=== PATIENT | female | born 1950 | race Caucasian/White ===

== ENCOUNTER 2018-12-06 07:50 | Day surgery (SDC) | payer OTHER ==
[~2018-12-06] VITALS: Ht 162.6 cm; Wt 70.2 kg
[~2018-12-06 07:50] MED LIST: BUPR150ER PO; CEPH500 PO; CHOL10002; Calcium/Vitamin D (6 PO; HYDACE5 PO; IBUP600; MULTI VITAMIN1 EACH PO; Norco 5-325 Ta1 EACH PO; OXYACE5T PO; Omega 3 Fish O1 EACH PO; PANT20 PO; PENVK500 PO; PROACE100 PO; RANI150 PO; Ropinirole HCl1 MG PO; VENL75ER PO; Zantac150 MG PO
--- NOTE | 2018-12-06 08:27 | NUR ---
Ambulatory in Day Surgery History, Chart, Medications and Allergies reviewed before start of procedure. Lungs clear T/O to Auscultation. Patient confirms NPO status and agrees with scheduled surgery. Pre-Op teaching done. Pt verbalizes understanding.
--- NOTE | 2018-12-06 08:56 | NUR ---
PATIENT REFUSES TO REMOVE DENTURES. PATIENT STATES THAT BOTTOME IS PARTIAL AND UPPER IS A DENTURE BUT FITS VERY TIGHT. INFORMED PATIENT THAT THERE'S A RISK OF INJURY TO UPPER DENTURE IF LEFT IN; PATIENT AGREES.
--- NOTE | 2018-12-06 10:12 | NUR ---
ASSUMED PT CARE FROM DONALD STRONG RN AT 1010.
--- NOTE | 2018-12-06 11:00 | NUR ---
INTO STEP VIA RAISSA. PT A&OX3. REPORTS 3/10 LEFT ARM PAIN. CAST INTACT TO LEFT ARM-NO NOTED BLEEDING OR SWELLING. CIRC CHECK GOOD. SATS 88% ON RA. PLACED ON 2 LITERS NASAL CANULA TO KEEP SATS>90% PT DENIES NAUSEA. GIVEN APPLE JUICE AND GRAM CRACKERS PER PT REQUEST.
--- NOTE | 2018-12-06 11:30 | NUR ---
Patient up to Ambulate independently. Gait steady. Dressing to procedure site clean, dry, intact with no visible drainage, swelling, erythema or bruising noted. Discharge instructions reviewed with patient. Patient verbalizes understanding. Copy given to patient to take home. Discharged via wheelchair to private car for ride home.
--- NOTE | 2018-12-07 15:33 | NUR ---
12/07/18 1533 Bianca Maki VERIFICATIONS.
== END 2018-12-06 11:30 | disposition home or self-care (01) ==
LOC: ORSCMMR 07:50 → ORD 09:00 → ORSCMMR 09:00
PROVIDERS: Orthopaedic Surgery
PROC: 0PSJ34Z Reposition Left Radius with Internal Fixation Device, Percutaneous Approach (ICD-10-PCS; principal; 2018-12-06 09:00)
DX: S52.552A Other extraarticular fracture of lower end of left radius, initial encounter for closed fracture (principal); F17.210 Nicotine dependence, cigarettes, uncomplicated; K21.9 Gastro-esophageal reflux disease without esophagitis; F43.10 Post-traumatic stress disorder, unspecified; Z79.899 Other long term (current) drug therapy
CPT/HCPCS: 36415; 80048; 80053; 80061; 82607; 82746; 85025; 93005; A9270-GY; J0330; J0690; J1100; J2250; J2405; J2765; J3010; J7120

== ENCOUNTER 2019-03-17 09:07 | Day surgery (SDC) | payer OTHER ==
[~2019-03-17] VITALS: Ht 162.6 cm; Wt 26.2 kg
[~2019-03-17 09:07] MED LIST changes: +ALEN70; +Travatan Z5 ML
[2019-03-17] MEDS ORDERED: Flonase 0.05% N16 GM (10:08)
[2019-03-17] MEDS ORDERED: Daily Multiple1 EACH PO (10:08)
[2019-03-17] MEDS ORDERED: CALCIUM 600 +1 EA11 PO (10:09)
--- NOTE | 2019-03-17 10:38 | NUR ---
03/17/19 1038 Dodie Seymour FIRST IV ATTEMPT RIGHT HAND. IV INFILTRATED 2ND IV ATTEMPT RIGHT FOREARM. IV INFILTRATED
== END 2019-03-17 14:07 | disposition home or self-care (01) ==
LOC: ORSCSDS 09:07
PROVIDERS: Orthopaedic Surgery
PROC: 0PBL0ZZ Excision of Left Ulna, Open Approach (ICD-10-PCS; principal; 2019-03-17 11:00)
PROC: 0PPL04Z Removal of Internal Fixation Device from Left Ulna, Open Approach (ICD-10-PCS; principal; 2019-03-17 11:00)
DX: S52.592D Other fractures of lower end of left radius, subsequent encounter for closed fracture with routine healing (principal); J44.9 Chronic obstructive pulmonary disease, unspecified; K21.9 Gastro-esophageal reflux disease without esophagitis; F17.210 Nicotine dependence, cigarettes, uncomplicated; F43.10 Post-traumatic stress disorder, unspecified; Z79.899 Other long term (current) drug therapy; G47.33 Obstructive sleep apnea (adult) (pediatric)
CPT/HCPCS: C1713; J0171; J0690; J1100; J1885; J2250; J2405; J2704; J3010

== ENCOUNTER → 2019-09-21 | Outpatient (CLI) | payer OTHER ==
[~2019-09-21] MED LIST changes: +CALCIUM 600 +1 EA11 PO; +Daily Multiple1 EACH PO; +Flonase 0.05% N16 GM
[2019-09-21 10:45] LABS: Body Fluid Crystals NEG (NEGATIVE); Crystals, Synovial Fluid Not Seen (Not Seen)
[2019-09-21 11:15] LABS: BODY FLUID RBC 0.024 M/mm3 (0-0); RBC Count, Synovial Fluid 24000 /mm3 (0-0); WBC Count, Synovial Fluid 90 /mm3 (0-180)
[2019-09-21 12:08] LABS: Appearance, Synovial Fluid Hazy (Clear); Color, Synovial Fluid Red (None-P Yel); Eos, Synovial Fluid 3 % (0-2); Lymphs, Synovial Fluid 40 % (0-15); Monocytes/Macrophages, Synovia 9 % (0-65); Neutrophils, Synovial Fluid 48 % (0-24)
== END | disposition home or self-care (01) ==
LOC: LAB SHORT 10:26 → LAB 10:26
PROVIDERS: Orthopaedic Surgery
DX: M70.42 Prepatellar bursitis, left knee (principal)
CPT/HCPCS: 87070; 87075; 87205; 89051; 89060

== ENCOUNTER 2019-10-25 11:12 | Inpatient (IN) | payer OTHER ==
[~2019-10-25] VITALS: Ht 162.6 cm; Wt 156.0 kg
[~2019-10-25 11:12] MED LIST changes: -ALEN70; -BUPR150ER PO; -CALCIUM 600 +1 EA11 PO; -Omega 3 Fish O1 EACH PO; -PANT20 PO; -Ropinirole HCl1 MG PO; -Travatan Z5 ML
[2019-10-25 11:58] LABS: BASOPHILS ABSOLUTE AUTO 0.08 K/mm3 (0.00-0.23); BASOPHILS PERCENT AUTO 1 % (0-2); EOSINOPHILS ABSOLUTE AUTO 0.12 K/mm3 (0.00-0.68); EOSINOPHILS PERCENT AUTO 2 % (0-6); Hematocrit 47.5 % (33.0-51.0); IMMATURE GRAN ABSOLUTE AUTO 0.02 K/mm3 (0.00-0.10); IMMATURE GRAN PERCENT AUTO 0 % (0-1); LYMPHOCYTES ABSOLUTE AUTO 1.48 K/mm3 (0.84-5.20); LYMPHOCYTES PERCENT AUTO 18 % (21-46); MONOCYTES ABSOLUTE AUTO 0.82 K/mm3 (0.16-1.47); MONOCYTES PERCENT AUTO 10 % (4-13); Mean Corpuscular HGB 33.3 pg (26.0-34.0); Mean Corpuscular HGB Conc 31.6 g/dL (31.5-36.5); Mean Corpuscular Volume 105 fL (80-100); Mean Platelet Volume 9.7 fL (9.1-12.4); NEUTROPHILS ABSOLUTE AUTO 5.74 K/mm3 (1.96-9.15); NEUTROPHILS PERCENT AUTO 70 % (41-73); Platelet Count 292 K/mm3 (150-400); RDW Coefficient Variation 13.1 % (11.7-14.2); RDW Standard Deviation 51.8 fL (35.1-46.3); Red Blood Cell Count 4.51 M/mm3 (3.80-5.20); White Blood Cell Count 8.26 K/mm3 (4.00-11.30)
[2019-10-25 12:21] LABS: Alanine Aminotransfer (ALT/SGP 26 U/L (12-78); Albumin, Blood 3.4 g/dL (3.4-5.0); Alk Phos 106 U/L (50-136); Anion Gap 12 mmol/L (6-16); Aspartate Aminotrans (AST/SGOT 25 U/L (12-37); Bilirubin, Total 1.3 mg/dL (0.1-1.0); Blood Urea Nitrogen 22 mg/dL (8-24); Bun/Creatinine Ratio 24.9 (12.0-20.0); CO2, Blood 18 mmol/L (21-32); Calcium, Blood 8.8 mg/dL (8.5-10.1); Chloride, Blood 104 mmol/L (98-108); Creatinine, Blood 0.89 mg/dL (0.40-1.00); Globulin, Blood 3.3 g/dL (2.2-4.0); Glomerular Filtration Rate >60 (60-); Glucose, Blood 112 mg/dL (70-99); Potassium, Blood 3.9 mmol/L (3.5-5.5); Sodium, Blood 134 mmol/L (136-145); Total Protein, Blood 6.7 g/dL (6.4-8.2); Troponin I 0.023 ng/mL (0.000-0.040)
[2019-10-25] MEDS ORDERED: ALEN70 PO (13:31)
[2019-10-25] MEDS ORDERED: Ventolin/Prove6.7 GM INH (13:32)
[2019-10-25] MEDS ORDERED: BUPROPION XL150 M1 PO (13:33)
[2019-10-25] MEDS ORDERED: PANT20 PO (13:34)
[2019-10-25] MEDS ORDERED: Travatan Z5 ML BOTHEYES (13:35)
[2019-10-25] MEDS ORDERED: OMEGA 3 FISH O1 EACH PO (13:45)
[2019-10-25] MEDS ORDERED: ROPINIROLE HCL2 M1 PO (13:45)
[2019-10-25] MEDS ORDERED: Vitamin D2000 UNIT PO (13:46)
[2019-10-25] MEDS ORDERED: CALCIUM600 MG PO (13:46)
[2019-10-25] MEDS ORDERED: PRESERVISION A1 EACH PO (13:47)
[2019-10-25] MEDS ORDERED: B-121000 MC3 PO (13:48)
--- NOTE | 2019-10-25 18:49 | NUR ---
ADMIT NOTE RECIEVED REPORT FROM SOREN SENIOR IN ED. PT TO ROOM VIA RAISSA; SBA TO BATHROOM UPON ADMISSION TO ROOM. PT ORIENTED TO ROOM AND CALL LIGHT. PT EDUCATED ON FALL RISK AND CALL LIGHT. PT REPORTS SOB AND SWELLING OVER THE LAST MONTH; WENT TO DR VILLAVICENCIO AND WAS SENT TO ED FOR FURTHER EVAL. PT A&Ox4 CALM AND COOPERATIVE WITH CARE. PT SBA ASSIST IN ROOM DUE TO IV POLE. PT REPORTS SOB, SPO2 >90% ON RA; PT INSISTS ON WEARING 2L O2 VIA NC FOR COMFORT; LS CLEAR. SWELLING NOTED TO BLE. PER TELE HR 90-100'S PT ON CARDIZEM GTT AT 10MH/HR. OTHER VSS. NO OTHER ACUTE CHANGES NOTED DURING SHIFT. WILL CONTINUE TO MONITOR UNTIL REPORT GIVEN TO ONCOMING RN.
--- NOTE | 2019-10-26 05:40 | NUR ---
SHIFT SUMMARY Pt remains on cardizem gtt infusing at 10mg/hr; HR sustaining 95-105, last BP 125/82. Pt is fully alert and oriented, expresses needs with call light, VSS. No acute events on tele, no concerns overnight. Pt endorses mild SOB with movement - 2L NC for comfort per pt. Oxygen saturations >94%. No apparent signs of distress. No acute changes from shift assessment. Will continue to monitor until day RN assumes care.
--- NOTE | 2019-10-26 08:14 | NUR ---
AM NOTE... ASSUMED CARE OF PT APROX 0700, PT IS A&Ox4 AND SBA/IND IN THE ROOM. PT WAS ADMITTED FOR AFIB RVR AND IS CURRENTLY IN AFIB IN THE 90'S-100'S. PT STATES HER BREATHING HAS IMPROVED FROM YESTERDAY WELL THE EDEMA TO HER BLE. PT STILL BECOMES SOB WITH ACTIVITY/WALKING TO THE BATHROOM BUT RECOVERS QUICKLY. PT'S VS STABLE AT THIS TIME, PT IS USING 2L NC PRN FOR COMFORT AT THIS TIME. PROVIDER AT THE BEDSIDE THIS AM, PT TOLD THE PROVIDER THAT SHE HAS NOT BEEN HAVING "NORMAL BMS FOR A LONG TIME." AND THAT SHE HAS A COLONOSCOPY SCHEDULED NEXT WEDNESDAY 11/01. BOWEL CARE STARTED PER VERBAL ORDERS. PT CURRENTLY DENIES ANY CHEST PAIN/PRESSURE OR INCREASED SOB. PO LOPRESSOR STARTED PER ORDERS. CALL LIGHT IN REACH WILL CONTINUE TO MONITOR.
[2019-10-26 08:36] LABS: Anion Gap 9 mmol/L (6-16); Blood Urea Nitrogen 19 mg/dL (8-24); Bun/Creatinine Ratio 24.1 (12.0-20.0); CO2, Blood 23 mmol/L (21-32); Calcium, Blood 8.7 mg/dL (8.5-10.1); Chloride, Blood 105 mmol/L (98-108); Creatinine, Blood 0.79 mg/dL (0.40-1.00); Glomerular Filtration Rate >60 (60-); Glucose, Blood 95 mg/dL (70-99); Potassium, Blood 3.6 mmol/L (3.5-5.5); Sodium, Blood 137 mmol/L (136-145)
[2019-10-26 10:40] LABS: International Normalized Ratio 1.12; Prothrombin Time Results 11.9 Sec (9.7-11.5)
--- NOTE | 2019-10-26 11:55 | NUR ---
PT UPDATE... AT APROX 1120PT WAS UP TO THE BATHROOM TO HAVE A BM, PT CAME OUT OF THE BATHROOM, PALE DIAPHORETIC AND OFF BALANCE. THIS RN GOT THE PT TO THE BED AND CHECKED HER VITALS, PT'S BP AT THE TIME WAS 77/56, HR 85, RR 28 TEMP 97.4. PT STATED "I FEEL LIKE I AM BURNING UP." PT WAS LAID BACK ON THE BED AND BP WAS RECHECKED AND IT WAS 108/83, PT STATED SHE FELT "A LITTLE BETTER" BUT "STILL FEELS VERY TIRED AND SICK." HEPARIN GTT STARTED PER ORDERS. PT STATED THAT SINCE STARTING THE BOWEL CARE THIS AM SHE HAS HAD AT LEAST 5 EPISODES OF LOOSE STOOLS. CARDIOLOGY PROVIDER IN THE ROOM AND SPOKE TO THE PT ABOUT HAVING AN AGNIO, SHAHEEN W/POSSIBLE CARDIOVERSION TOMORROW. THIS RN ATTEMPTED TO EDUCATE THE PT ON THESE PROCEDURES BUT SHE SAID "I JUST FEEL TOO SICK RIGHT NOW TO TALK ABOUT IT." WILL CONTINUE TO MONITOR.
--- NOTE | 2019-10-26 17:46 | NUR ---
SHIFT SUMMARY... NO ACUTE NEGATIVE CHANGES SINCE PRVIOUS NOTE. PT'S BP HAS IMPROVED AND IS 107/70. PT C/O OF LIGHT HEADED/DIZZINESS WITH STANDING/MOVING TO QUICKLY. ORTHOSTATIC BPS WERE DONE (LAYIN/64 HR 80, SITTIN/61, HR 92, STANDIN/65, HR 84) . PT EDUCATED ON USING CALL LIGHT FOR HELP BEFORE GETTING UP AND TO MOVE SLOWLY TO AVOID BECOMING DIZZY. PT VERBALIZED HER UNDERSTANDING. PT'S OTHER VS STABLE AT THIS TIME. PT IS STILL IN AFIB BUT CONTROLLED IN THE 80'S-LOW 100'S. PT IS TO BE NPO AFTER MIDNIGHT FOR POSSIBLE ANGIO/SHAHEEN/CARDIOVERSION WITH DR. GONZALEZ. CONSENT WAS SIGNED AND PLACED IN THE CHART. CALL LIGHT IN REACH WILL CONTINUE TO MONITOR UNTIL REPORT IS GIVEN TO ONCOMING RN.
[2019-10-26 20:27] LABS: Mean Platelet Volume 9.9 fL (9.1-12.4); Platelet Count 268 K/mm3 (150-400)
--- NOTE | 2019-10-27 | NUR ---
PT MADE NPO PER ORDERS
[2019-10-27 04:50] LABS: Bun/Creatinine Ratio 21.5 (12.0-20.0); Calcium, Blood 8.9 mg/dL (8.5-10.1); Creatinine, Blood 1.21 mg/dL (0.40-1.00); Magnesium, Blood 1.9 mg/dL (1.6-2.4); Potassium, Blood 4.6 mmol/L (3.5-5.5)
--- NOTE | 2019-10-27 05:06 | NUR ---
SHIFT SUMMARY Pt with no acute events overnight, VSS, alert and oriented, ambulating to bathroom with minimal assistance. Renal function lab results noted to have decreased. Pt is on lasix 40 mg BID. Pt tearful at start of shift regarding prognosis. She spoke with this RN about friends who are a support. Pt has been NPO since midnight for possible SHAHEEN, cardioversion, and angio today per Dr. Mckay. Heprin gtt infusing 17 u/kg/hr per orders. No events on tele, no acute concerns to note.
--- NOTE | 2019-10-27 07:45 | NUR ---
AM NOTE... ASSUMED CARE OF PT APROX 0700. PT IS A&Ox4 AND IND IN THE ROOM. PT IS NPO FOR ANGIO THIS AM AND SHAHEEN/CARDIOVERSION LATER TODAY. PT'S HEPARIN GTT STOPED PER VERBAL ORDER FROM DR. GONZALEZ AT 0730. IV LASIX HELD PER DR. GONZALEZ'S REQUEST WELL. PT'S VS STABLE AT THIS TIME. L/S CLEAR IN THE UPPER/MID LOBES FAINT FINE CRACKLES HEARD IN THE LOWER LOBES. PT IS ON RA WITH 2L NC PRN COMFORT. BT PRESENT AND HYPERACTIVE PT STATES SHE IS STILL HAVING LOOSE STOOLS FROM BOWEL CARE STARTED YESTERDAY. PT HAS 3+ PITTING EDEMA TO HER BLE, TRACE EDEMA NOTED TO HER UPPER THIGHS. CALL LIGHT IN REACH WILL CONTINUE TO MONITOR.
--- NOTE | 2019-10-27 12:50 | NUR ---
The pt returned to PCU 1 accompaned by Nicola DOTY from [facility]. Pt is awake, alert, and cooperative, no complaints of pain or discomfort. TR band on the right wrist is in place, and the site is without bleeding, bruising or swelling. ARea around the site is unremarkable. Distal pulses and capillary refill are within normal limits. SPo2 measured on the 2nd digit of the right hand is 92% and the pt is not wearing any supplemental oxygen. Vital signs taken and noted in electronic record. The pt will continue to be NPO in anticipation of the SHAHEEN after the recovery of the TR band. Phone call from Dr. Mckay at this time, and the plan explained again: Keep the pt NPO, recover the TR band, and restart the heparin, then SHAHEEN with cardioversion to be done by Dr. Mckay in the room. [facility]. Called Michelle in the pharmacy to update her on the heparin gtt and plan to restart once the TR band is recovered.
--- NOTE | 2019-10-27 17:55 | NUR ---
SHIFT SUMMARY... PT HAD ANGIO TODAY AT APROX 1130, NO INTERVENTIONS WERE DONE. PT HAS RIGHT RADIAL SITE, TR BAND WAS RECOVERED AND HEPARIN GTT RESTARTED PER ORDERS OF DR. GONZALEZ. PT THEN HAD A SHAHEEN AND CARDIOVERSION AND PT IS CURRENTLY IN SR W/PACS AND PVCS IN THE 80'S. PT'S VS STABLE T/O THE PROCEDURE AND THIS SHIFT. PT HAS BEEN PLEASENTLY CONFUSED WITH THE SEDATION MEDICATION THIS AFTERNOON, BED ALARM TURNED ON. CALL LIGHT IN REACH WILL CONTINUE TO MONITOR UNTIL REPORT IS GIVEN TO ON COMING RN.
[2019-10-28 05:49] LABS: Bun/Creatinine Ratio 25.7 (12.0-20.0); Calcium, Blood 9.1 mg/dL (8.5-10.1); Creatinine, Blood 1.01 mg/dL (0.40-1.00); Magnesium, Blood 1.9 mg/dL (1.6-2.4); Potassium, Blood 3.9 mmol/L (3.5-5.5)
--- NOTE | 2019-10-28 06:26 | NUR ---
patient did well overnight, vital signs were stable. Patient was found to still be in afib despite of the cardioversion treatment performed earlier in the day. Patient continues to make adequate urine and reports feeling much better than the day before with less shortness of breath. On assessment of the patient s heart rate was irregular, lungs were clear to auscultation, and other systems were within normal limits (please refer to charting)
[2019-10-28] MEDS ORDERED: Prinivil10 MG PO (11:51)
[2019-10-28] MEDS ORDERED: METO50ER PO (11:52)
[2019-10-28] MEDS ORDERED: POTCHL20ER PO (11:52)
[2019-10-28] MEDS ORDERED: XARELTO15 MG PO (11:53)
[2019-10-28] MEDS ORDERED: FURO40 PO (11:53)
--- NOTE | 2019-10-28 14:50 | NUR ---
PT HRR REMAINS ON THE 90'S-110'S MEDICALLY CONTROLLED, THE REST OF THE VITALS STABLE. SATS ABOVE 94% ON ROOMAIR, PT AMBULATED WITH RT AND DOES NOT RECOMMEND ANY OXYGEN SUPPLEMENTATION. PT APPEARS ANXIOUS, PT WAS TACHYCARDIC AT ONE POINT AT 130'S PT WAS EMOTIONAL IN THE ROOM STATING SHE FELT DEPPRESSED SHE WAS HAVING A HARD TIME GOING THROUGH THIS ILLNESS PT ALSO STATED SHE MISSED TAKING HER ANTIDEPRESSANTS SINCE SHE GOT HOSPITALIZED, PROVIDER WAS MADE AWARE PT WAS STARTED TODAY ON WELLBUTRIN 150MG. PT ALSO DISCUSSED WITH THE PROVIDER HOW SHE FEELS NOT SAFE TO GO HOME TODAY SINCE SHE LIVES ALONE AND NOT FEELING TO BE ABLE TO TAKE CARE OF HERSELF/NEEDS. PT TO DISCHARGE TOMORROW INSTEAD. PT HAS BEEN AMBULATING INDEPENDENTLY IN THE ROOM WITHOUT ISSUES. STILL HAS 2+ PITTING EDEMA ON BOTH LEGS, ELASTIC STOCKINGS APPLIED. WILL MONITOR PT
--- NOTE | 2019-10-29 06:30 | NUR ---
on a clinical standpoint patient did well overnight, vital signs remain stable with a heart rate in afib between 90s and 110s. Patient complains that she still does not feel well and would like to talk to the dispatch associate regarding her discharge plan and ongoing treatment for her afib. Patient denies chest pain, pressure, shortness of breath, palpitations and/or any other cardio pulmonary symptoms. The plan for the patient is to go home today, October 28.
[2019-10-29 09:24] LABS: Magnesium, Blood 1.6 mg/dL (1.6-2.4)
[2019-10-29 09:25] LABS: Albumin, Blood 3.3 g/dL (3.4-5.0); Anion Gap 8 mmol/L (6-16); Blood Urea Nitrogen 28 mg/dL (8-24); Bun/Creatinine Ratio 25.7 (12.0-20.0); CO2, Blood 26 mmol/L (21-32); Chloride, Blood 101 mmol/L (98-108); Creatinine, Blood 1.09 mg/dL (0.40-1.00); Glomerular Filtration Rate 53 (60-); Glucose, Blood 139 mg/dL (70-99); Phosphorus, Blood 4.2 mg/dL (2.5-4.9); Potassium, Blood 4.4 mmol/L (3.5-5.5); Sodium, Blood 135 mmol/L (136-145)
--- NOTE | 2019-10-29 11:27 | NUR ---
PT DISCHARGE TO HOME TODAY WITH DISCHARGE ORDERS PT TO SEE HOME HEALTH. TO CONTINUE TAKING NEW MEDICATION AND RESUME HOME MEDS. PT TO FOLLOW UP [facility] PCP WITHIN A WEEK AND DR GONZALEZ WITHIN 2 WEEKS. PT SIGNED THE CONSENT FORM. VITALS HAS BEEN STABLE. ALL BELONGINGS SENT WITH PATIENT. PT ACCOMPANIED BY IRON SETTER VIA WHEELCHAIR FOR A FRIEND TO GATE MORTISER OPERATOR FOR TRANSPORT.
== END 2019-10-29 11:28 | disposition home or self-care (01) | DRG 286 ==
LOC: ER 11:12 → ERHOLD 11:13 → PCU 17:57
PROVIDERS: Emergency Medicine; Internal Medicine; ADMIT Hospitalist
PROC: B246ZZ4 Ultrasonography of Right and Left Heart, Transesophageal (ICD-10-PCS; principal; 2019-10-27)
PROC: B2111ZZ Fluoroscopy of Multiple Coronary Arteries using Low Osmolar Contrast (ICD-10-PCS; 2019-10-27)
PROC: 5A2204Z Restoration of Cardiac Rhythm, Single (ICD-10-PCS; 2019-10-27)
PROC: 4A023N7 Measurement of Cardiac Sampling and Pressure, Left Heart, Percutaneous Approach (ICD-10-PCS; 2019-10-27)
DX: I48.0 Paroxysmal atrial fibrillation (principal); I50.21 Acute systolic (congestive) heart failure; I42.0 Dilated cardiomyopathy; F32.9 Major depressive disorder, single episode, unspecified; M81.0 Age-related osteoporosis without current pathological fracture; K21.9 Gastro-esophageal reflux disease without esophagitis; I08.1 Rheumatic disorders of both mitral and tricuspid valves; Z87.891 Personal history of nicotine dependence; I27.20 Pulmonary hypertension, unspecified; J44.9 Chronic obstructive pulmonary disease, unspecified
CPT/HCPCS: 36415; 71045; 76937; 80048; 80053; 80069; 82728; 83735; 83880; 84443; 84484; 85025; 85049; 85610; 85730; 92960; 93005; 93010; 93306; 93312; 93325; 93458; 94761; 96365; 96366; 96372; 96375; 96376; 97112; 97162; 99152; 99153; 99285-25; A9270; A9270-GY; C1769; C1894; C9113; G0378; J1644; J1650; J1940; J2250; J2405; J3010; J7030; Q9967

== ENCOUNTER 2019-12-07 23:39 | Inpatient (IN) | payer OTHER ==
[~2019-12-07] VITALS: Ht 162.6 cm; Wt 74.3 kg
[~2019-12-07 23:39] MED LIST changes: +ACET325 PO; +B-121000 MC3 PO; +BUME1 PO; +CALCIUM600 MG PO; +FURO40 PO; +Hair, Skin & N1 EACH PO; +MIRALAX17 GM PO; +Midodrine HCl2.5 MG PO; +OMEGA 3 FISH O1 EACH PO; +POTCHL20ER PO; +PROBIOTIC1 EA10 PO; +Prinivil10 MG PO
[2019-12-08 00:29] LABS: BASOPHILS ABSOLUTE AUTO 0.05 K/mm3 (0.00-0.23); BASOPHILS PERCENT AUTO 0 % (0-2); EOSINOPHILS PERCENT AUTO 0 % (0-6); Hematocrit 47.5 % (33.0-51.0); Hemoglobin 14.8 g/dL (11.5-16.0); IMMATURE GRAN ABSOLUTE AUTO 0.17 K/mm3 (0.00-0.10); IMMATURE GRAN PERCENT AUTO 1 % (0-1); LYMPHOCYTES ABSOLUTE AUTO 1.24 K/mm3 (0.84-5.20); LYMPHOCYTES PERCENT AUTO 8 % (21-46); MONOCYTES ABSOLUTE AUTO 0.56 K/mm3 (0.16-1.47); MONOCYTES PERCENT AUTO 4 % (4-13); Mean Corpuscular HGB 31.4 pg (26.0-34.0); Mean Corpuscular HGB Conc 31.2 g/dL (31.5-36.5); Mean Platelet Volume 10.2 fL (9.1-12.4); NEUTROPHILS ABSOLUTE AUTO 13.44 K/mm3 (1.96-9.15); NEUTROPHILS PERCENT AUTO 87 % (41-73); NRBC ABSOLUTE 0.04 K/mm3 (0.00-0.02); NRBC Auto 0.3 /100 WBC (0.0-0.2); Platelet Count 296 K/mm3 (150-400); RDW Coefficient Variation 16.3 % (11.7-14.2); RDW Standard Deviation 59.7 fL (35.1-46.3); Red Blood Cell Count 4.72 M/mm3 (3.80-5.20); White Blood Cell Count 15.46 K/mm3 (4.00-11.30)
[2019-12-08 00:30] LABS: Mean Corpuscular Volume 101 fL (80-100)
[2019-12-08 00:50] LABS: Troponin I <0.015 ng/mL (0.000-0.040)
[2019-12-08 01:08] LABS: Alanine Aminotransfer (ALT/SGP 19 U/L (12-78); Albumin, Blood 2.3 g/dL (3.4-5.0); Albumin/Globulin Ratio 0.8 (0.8-1.8); Alk Phos 256 U/L (50-136); Anion Gap 19 mmol/L (6-16); Aspartate Aminotrans (AST/SGOT 45 U/L (12-37); Bilirubin, Total 1.5 mg/dL (0.1-1.0); Blood Urea Nitrogen 35 mg/dL (8-24); Bun/Creatinine Ratio 20.2 (12.0-20.0); CO2, Blood 9 mmol/L (21-32); Chloride, Blood 95 mmol/L (98-108); Creatinine, Blood 1.73 mg/dL (0.40-1.00); Glomerular Filtration Rate 31 (60-); Glucose, Blood 58 mg/dL (70-99); Potassium, Blood 6.4 mmol/L (3.5-5.5); Sodium, Blood 123 mmol/L (136-145); Total Protein, Blood 5.3 g/dL (6.4-8.2)
[2019-12-08 01:42] LABS: Magnesium, Blood 0.7 mg/dL (1.6-2.4); Phosphorus, Blood 3.3 mg/dL (2.5-4.9)
[2019-12-08 01:47] LABS: PCO2 Arterial 20.6 mmHg (35-45); PO2 Arterial 121 mmHg (80-100); pH Blood Arterial 7.29 (7.35-7.45)
[2019-12-08 02:48] LABS: Adenovirus Not Detected (NOT DETECT); Bordetella pertussis Not Detected (NOT DETECT); Chlamydophila pneumoniae Not Detected (NOT DETECT); Coronavirus 229E Not Detected (NOT DETECT); Coronavirus HKU1 Not Detected (NOT DETECT); Coronavirus NL63 Not Detected (NOT DETECT); Coronavirus OC43 Not Detected (NOT DETECT); Human Metapneumovirus Not Detected (NOT DETECT); Human Rhinovirus/Enterovirus Not Detected (NOT DETECT); Influenza A/2009-H1 Not Detected (NOT DETECT); Influenza A/H1 Not Detected (NOT DETECT); Influenza A/H3 Not Detected (NOT DETECT); Influenza B Not Detected (NOT DETECT); Mycoplasma pneumoniae Not Detected (NOT DETECT); Parainfluenza Virus 1 Not Detected (NOT DETECT); Parainfluenza Virus 2 Not Detected (NOT DETECT); Parainfluenza Virus 3 Not Detected (NOT DETECT); Parainfluenza Virus 4 Not Detected (NOT DETECT); Respiratory Syncytial Virus Not Detected (NOT DETECT)
[2019-12-08] MEDS ORDERED: ONDA4 PO (04:02)
[2019-12-08] MEDS ORDERED: Florastor250 MG PO (04:03)
[2019-12-08] MEDS ORDERED: AMOX875 PO (04:04)
[2019-12-08] MEDS ORDERED: BISA10S PR (04:09)
[2019-12-08] MEDS ORDERED: Fleet Glycerin1 EACH PR (04:10)
[2019-12-08] MEDS ORDERED: CORTISONE60 GM TOP (04:12)
[2019-12-08] MEDS ORDERED: Milk Of Ma400 MG/5 M PO (04:13)
[2019-12-08 04:41] LABS: Source, Urine Catheter
[2019-12-08 04:42] LABS: Bilirubin, Urine Neg (Neg); Blood, Urine 5+ (Neg); Glucose Qualitative, Urine Neg (Neg); Ketones, Urine Neg (Neg); Leukocyte Esterase, Urine 2+ (Neg); Nitrite, Urine Neg (Neg); Protein, Urine 2+ (Neg); Urobilinogen, Urine NORM (Normal)
[2019-12-08 04:47] LABS: Appearance, Urine Hazy (Clear); Color, Urine Yellow (P-Yellow)
[2019-12-08 05:00] LABS: Amorphous Mod (0-Heavy); Bacteria Few /hpf; Red Blood Cells, Urine 0-2 /hpf (0-2); Squamous Epithelial Cells Few /hpf (Few); White Blood Cells, Urine 50-100 /hpf (0-5)
[2019-12-08 05:50] LABS: BASOPHILS ABSOLUTE AUTO 0.08 K/mm3 (0.00-0.23); BASOPHILS PERCENT AUTO 1 % (0-2); EOSINOPHILS PERCENT AUTO 0 % (0-6); Hematocrit 43.8 % (33.0-51.0); Hemoglobin 14.4 g/dL (11.5-16.0); IMMATURE GRAN ABSOLUTE AUTO 0.11 K/mm3 (0.00-0.10); IMMATURE GRAN PERCENT AUTO 1 % (0-1); LYMPHOCYTES ABSOLUTE AUTO 1.98 K/mm3 (0.84-5.20); LYMPHOCYTES PERCENT AUTO 12 % (21-46); MONOCYTES ABSOLUTE AUTO 0.65 K/mm3 (0.16-1.47); MONOCYTES PERCENT AUTO 4 % (4-13); Mean Corpuscular HGB 31.3 pg (26.0-34.0); Mean Corpuscular HGB Conc 32.9 g/dL (31.5-36.5); Mean Platelet Volume 10.3 fL (9.1-12.4); NEUTROPHILS ABSOLUTE AUTO 13.54 K/mm3 (1.96-9.15); NEUTROPHILS PERCENT AUTO 83 % (41-73); NRBC ABSOLUTE 0.06 K/mm3 (0.00-0.02); NRBC Auto 0.4 /100 WBC (0.0-0.2); Platelet Count 271 K/mm3 (150-400); RDW Coefficient Variation 15.9 % (11.7-14.2); RDW Standard Deviation 55.5 fL (35.1-46.3); White Blood Cell Count 16.36 K/mm3 (4.00-11.30)
[2019-12-08 05:58] LABS: Albumin, Blood 2.5 g/dL (3.4-5.0); Anion Gap 13 mmol/L (6-16); Blood Urea Nitrogen 38 mg/dL (8-24); Bun/Creatinine Ratio 18.8 (12.0-20.0); CO2, Blood 18 mmol/L (21-32); Calcium, Blood 7.9 mg/dL (8.5-10.1); Chloride, Blood 89 mmol/L (98-108); Creatinine, Blood 2.02 mg/dL (0.40-1.00); Glomerular Filtration Rate 26 (60-); Glucose, Blood 85 mg/dL (70-99); Phosphorus, Blood 5.3 mg/dL (2.5-4.9); Sodium, Blood 120 mmol/L (136-145)
[2019-12-08 06:01] LABS: Potassium, Blood 6.3 mmol/L (3.5-5.5)
[2019-12-08 06:11] LABS: Mean Corpuscular Volume 95 fL (80-100)
--- NOTE | 2019-12-08 07:34 | NUR ---
PT TO ICU/SHIFT SUMMARY PT TO ICU VIA RAISSA WITH ED RN, PT ALERT AND ORIENTED, SPEECH SLURRED AND PT SLOW TO RESPOND, PT ON 5L O2 PER NC, VERY DIFFICULT GETTING ACCURATE READING FROM FINGER OR EAR, O2 SATURATIONS SHOWING 85-91%, CALL TO RT FOR FOREHEAD PULSE OXIMETER AND O2 READINGS INCREASED TO 100%, O2 TITRATED TO 2L PER NC. UPON ARRIVAL TO UNIT, MONITOR SHOWED SINUS TACH WITH HR 100-110, DIFFICULTY OBTAINING BP READING, GETTING "MEAN ONLY" READINGS OF 80-90'S. PT WITH MULTIPLE WOUNDS TO SACRUM AND BLE, PHOTOS TAKEN AND ON FILE. UNABLE TO OBTAIN CBG UPON ARRIVAL EXTREMETIES VERY COLD AND CYANOTIC. 2G MAGNESIUM IV STARTED UPON ARRIVAL TO UNIT. CRITICAL LACTIC OF 8.[address] STEWART, UPDATED ON PTS STATUS, UNABLE TO OBTAIN ADDITIONAL IV ACCESS, ORDER TO CONSULT SUPERVISOR SLEEPING BAG DEPARTMENT. DR BURT CALLED, IN TO SEE PT THIS AM, CENTRAL LINE PLACED @ APPROX 0415 AND LEVO GTT INITIATED. DR BECKER IN TO SEE PT THIS AM, NOTIFIED OF CRITICAL POTASSIUM, ORDERS TO INCREASE BICARB GTT, 1 AMP BICARB IV, 1 AMP D50 IV, 10 U INSULIN IV, AND 10G LOKELMA PO. RENAL US COMPLETED THIS AM. REPORT GIVEN TO LUISITO DOTY.
[2019-12-08 08:04] LABS: Base Excess Venous -6.4 mmol/L; PO2 Venous 44.4 mmHg (38-42); pH Blood Venous 7.31 (7.34-7.37)
--- NOTE | 2019-12-08 10:03 | NUR ---
[place] of Care: Care assumed at 0700hr. Patient sleeping, drowsy when awake, but responds easily to verbal stimuli, oriented x3. Denies pain, discomfort, SOB, or dyspnea. SpO2-94-98% on 2L/NC. Central line to rt IJ patent and intact infusing without difficulty. Levophed gtt at 5mcg/min at shift change, the decreased to 3mcg/min at approx 0730hr. BP remains stable. Yin cath patent and intact, draining clear yellow urine. Multiple wounds to legs, all wounds cleansed and foam dressings applied. Ate approx 75% of breakfast without difficulty. Tolerating PO fluids, food, and medications without difficulty. Call light in reach, makes needs known. Will continue to monitor.
[2019-12-08 12:07] LABS: Albumin, Blood 2.3 g/dL (3.4-5.0); Anion Gap 10 mmol/L (6-16); Blood Urea Nitrogen 39 mg/dL (8-24); Bun/Creatinine Ratio 20.3 (12.0-20.0); CO2, Blood 24 mmol/L (21-32); CPK Creatine Kinase 144 U/L (26-193); Calcium, Blood 7.6 mg/dL (8.5-10.1); Chloride, Blood 88 mmol/L (98-108); Creatinine, Blood 1.92 mg/dL (0.40-1.00); Glomerular Filtration Rate 27 (60-); Glucose, Blood 129 mg/dL (70-99); Phosphorus, Blood 4.4 mg/dL (2.5-4.9); Potassium, Blood 5.2 mmol/L (3.5-5.5); Sodium, Blood 122 mmol/L (136-145); Troponin I 0.035 ng/mL (0.000-0.040); Uric Acid, Blood 11.8 mg/dL (2.6-6.0)
[2019-12-08 12:20] LABS: Osmolality, Serum 263 mos/KG (275-300)
[2019-12-08 15:11] LABS: Hematocrit 40.1 % (33.0-51.0); Hemoglobin 13.5 g/dL (11.5-16.0)
--- NOTE | 2019-12-08 18:23 | NUR ---
Shift Summary: Patient slept on/off throughout shift, but continues to rouse easily to verbal stimuli, remains oriented x3. VS remain stable, levophed gtt turned off at approx 1030hr, systolic BP 90's-low 100's. Central line to rt IJ remains patent and intact, infusing without difficulty. Yin cath remains patent and intact, draining clear yellow urine. Poor apatite this shift, but tolerated small amount of breakfast and lunch without difficulty. At approx 1400hr, patient had large, loose maroon/red BM. Dr. Altamirano notified, received order for STAT H+H, which resulted 13.5/40.1, only slightly decreased from this morning. Dr. Altamirano also discontinued PO Xarelto. Patient had x1 additional bloody BM this evening, small amount. Dr. Altamirano also aware of additional BM, no new orders received at that time. Throughout shift, appearance of patient's lt leg wound worsened. Dark/purple discoloration surrounding wound increased in size. Swelling to BLE's also increased throughout shift, from 2-3+ to 3-4+. Patient also became very painful to touch of lower extremities, and modeling noted to rt knee. Call placed to Dr. Altamirano r/t BLE's, all above information conveyed. Received order for bilateral lower venous + arterial duplex study. Proximic performing exam at this time. Will continue to monitor until report to NOC shift RN.
--- NOTE | 2019-12-08 19:09 | NUR ---
Called to meet with pt to discuss her further decline and suffering. Therputic time with pt. Assited with would care. She is making statements about this is the end and suggested she call her brother. They had a brief discussion but she was to fatigued to continue. pt very painfull with any movment and increasing fatigue. discussion of suffering and need to revisit our conversation on acceptance. Called her best friend to come in. Advise pt to discuss with her fiend end of life care for help with decision. pt to frail and sick to make decision on her own. Pt agreed to DNR discussed if she cant make her own decison with her friend she will call brother and they will help with acceptance and plan.
[2019-12-08 20:00] LABS: Base Excess Venous 0 mmol/L; Bicarbonate Venous 23.3 mmol/L (24.0-30.0); PCO2 Venous 42.6 mmHg (38-42); PO2 Venous 32.5 mmHg (38-42); pH Blood Venous 7.38 (7.34-7.37)
--- NOTE | 2019-12-08 20:48 | NUR ---
[place] OF CARE PT ALERT AND ORIENTED, O2 SATURATIONS>90% ON RA, MONITOR SHOWS SINUS RHYTHM, IRREGULAR AT TIMES, POSSIBLE PAC'S, HR 55-60'S, BP STABLE, LEVOPHED ON SB. PT WITH SIGNIFICANT EDEMA TO BLE AND ABDOMEN, BUT IMPROVED FROM PREVIOUS SHIFT, EXTREMETIES VERY COOL, PEDAL PULSES WEAK WITH DOPPLER. WOUND TO LOWER LEFT LEG WITH LARGE AMOUNTS OF SEROSANGUINOUS DRAINAGE, PT REQUESTS WOUNDS REMAIN OPEN TO AIR. REDDENED AREA AROUND L LOWER LEG WOUND, BLANCHABLE, VERY PAINFUL AND HOT TO THE TOUCH. PT WITH POOR PO INTAKE, SWALLOWS PILLS WHOLE WITH WATER. MCKEON REMAINS IN PLACE AND DRAINING YELLOW URINE. PT VERY WEAK BUT EAGER TO BE INDEPENDENT POSSIBLE. PT REPORTS 9/10 PAIN TO BLE, TRAMADOL ADMINISTERED, PT DECLINED TYLENOL. NO MECHANICAL VTE PROPHYLAXIS D/T BLE WOUNDS, CHEMICAL VTE DC'D D/T BLOODY STOOL DURING DAYSHIFT. VBG RESULTS CALLED TO DR ALY AND DR BECKER, ORDER TO DC BICARB GTT.
[2019-12-09 05:01] LABS: BASOPHILS ABSOLUTE AUTO 0.05 K/mm3 (0.00-0.23); BASOPHILS PERCENT AUTO 0 % (0-2); EOSINOPHILS ABSOLUTE AUTO 0.04 K/mm3 (0.00-0.68); EOSINOPHILS PERCENT AUTO 0 % (0-6); Hematocrit 38.8 % (33.0-51.0); Hemoglobin 13.1 g/dL (11.5-16.0); IMMATURE GRAN ABSOLUTE AUTO 0.09 K/mm3 (0.00-0.10); IMMATURE GRAN PERCENT AUTO 1 % (0-1); LYMPHOCYTES ABSOLUTE AUTO 0.91 K/mm3 (0.84-5.20); LYMPHOCYTES PERCENT AUTO 6 % (21-46); MONOCYTES ABSOLUTE AUTO 0.48 K/mm3 (0.16-1.47); MONOCYTES PERCENT AUTO 3 % (4-13); Mean Corpuscular HGB Conc 33.8 g/dL (31.5-36.5); Mean Corpuscular Volume 92 fL (80-100); Mean Platelet Volume 10.1 fL (9.1-12.4); NEUTROPHILS ABSOLUTE AUTO 13.17 K/mm3 (1.96-9.15); NEUTROPHILS PERCENT AUTO 89 % (41-73); NRBC ABSOLUTE 0.02 K/mm3 (0.00-0.02); NRBC Auto 0.1 /100 WBC (0.0-0.2); Platelet Count 237 K/mm3 (150-400); RDW Coefficient Variation 16.2 % (11.7-14.2); RDW Standard Deviation 53.7 fL (35.1-46.3); Red Blood Cell Count 4.22 M/mm3 (3.80-5.20); White Blood Cell Count 14.74 K/mm3 (4.00-11.30)
[2019-12-09 05:28] LABS: Albumin, Blood 2.4 g/dL (3.4-5.0); Anion Gap 12 mmol/L (6-16); Blood Urea Nitrogen 38 mg/dL (8-24); Bun/Creatinine Ratio 21.6 (12.0-20.0); CO2, Blood 25 mmol/L (21-32); Calcium, Blood 7.5 mg/dL (8.5-10.1); Chloride, Blood 87 mmol/L (98-108); Creatinine, Blood 1.76 mg/dL (0.40-1.00); Glomerular Filtration Rate 30 (60-); Glucose, Blood 79 mg/dL (70-99); Magnesium, Blood 2.1 mg/dL (1.6-2.4); Phosphorus, Blood 3.8 mg/dL (2.5-4.9); Potassium, Blood 4.5 mmol/L (3.5-5.5); Sodium, Blood 124 mmol/L (136-145)
--- NOTE | 2019-12-09 06:34 | NUR ---
SHIFT SUMMARY NO ACUTE CHANGES THIS SHIFT, VITAL SIGNS REMAIN STABLE OFF OF PRESSORS AND ON ROOM AIR. PT MEDICATED FOR PAIN x1, ADEQUATE FOR PAIN CONTROL AND PT SLEPT WELL T/O THE NIGHT. SIGNIFICANT PAIN REMAINS TO BLE, WORSE TO THE L LEG AND WORSE WITH TOUCH/REPOSITIONING. PT ASKED THIS RN HOW LONG THE PAIN TO HER LEGS WAS GOING TO LAST, EXPLAINED HEALING PROCESS AND HOW DECREASED EFFICIENCY OF TH HEART CAN INCREASE HEALING TIME. PT WITH VERY SMALL/SMEAR BM THIS SHIFT, RUST COLORED. MCKEON IN PLACE AND DRAINING YELLOW URINE, APPROX 500ml THIS SHIFT. CALL LIGHT REMAINS IN PLACE, PT USES APPROPRIATELY.
--- NOTE | 2019-12-09 07:54 | NUR ---
[place] of Care: Care assumed at 0700hr. Patient alert and oriented x3, sitting upright in bed, with visitor at bedside. C/o pain to legs, knees, and leg wounds. x1 prn Ultram given shortly after shift change, will monitor for effect. Denies dyspnea/SOB, spO2 98% on RA, VSS. Plan to cleanse leg wounds this morning, but patient refuses gauze dressings as they are painful. Pulses to BLE's positive per doppler. Purple discoloration persist to bilateral toes, but no change r/t 12/08/19. Central line to rt IJ remains patent and intact, infusing without difficulty. Yin cath remains patent and intact, draining clear yellow urine. Call light in reach, makes needs known. Will continue to monitor.
--- NOTE | 2019-12-09 14:06 | NUR ---
Spoke with Bedside RN Nelson and discussed case prior to visiting with Pt. Pt is resting in bed upon arrival. Pt reports current pain regimen is managing her pain. Engaged in therapeutic discussion regarding goals of care. Offered therapeutic listening and assessed Pt's understanding of her chronic illness. Educated on disease process including trajectory of disease. Explored Pt's goals and values. Discussed quality of life and comfort. Pt states she wants to spend her remaining days at home focusing on comfort. Educated on hospice philosophy with V/U made by Pt. Discussed the possibility of needing assistance with caregivers in the home or possibly needing a higher level of care. Pt reports her wishes are to be at home and would prefer not to go to assisted living. Discussed adult foster homes with little response from Pt. Pt gives this RN verbal permission to update her roommate Felisa and her brother Ady of her wishes and goals. Pt report no other concerns at this time. Spoke with Dr Altamirano and discussed case. Dr Altamirano is in agreement with hospice. Spoke with Dr Rodrigues and she is in agreement with hospice. Called and spoke with roommate Felisa. Discussed Pt's goals and wishes. Offered therapeutic listening. Felisa reports due to her work schedule she will not be able to provide care for the Pt. Called and spoke with Pt brother Ady. Updated Ady of Pt's wishes. Engaged in therapeutic discussion regarding disease process. Answered questions and offered therapeutic listening. Ady expresses appreciation of call and reports no other concerns at this time. Placed hospice referral. Palliative Care will remain available for therapeutic visits.
[2019-12-09 14:28] LABS: Hematocrit 39.1 % (33.0-51.0); Hemoglobin 13.2 g/dL (11.5-16.0)
--- NOTE | 2019-12-09 15:30 | NUR ---
PT PROMISE COOP A/O QUIET. PT REP0RT RECEIVED FROM [employer] OPERATOR. SETTLED TO BED. BED IN LOW POSITION, CALL LITE IN REACH, CALLS APPROP
--- NOTE | 2019-12-09 16:04 | NUR ---
Transfer to PCU: Transfer order (PCU) received from Dr. Altamirano at approx 1430hr. Bed assignment received, PCU-5. Report called to Shemar DOTY in PCU. Patient transferred via bed to PCU 5 without difficulty. Belonging's sent with patient to new room.
--- NOTE | 2019-12-09 18:00 | NUR ---
PT RECEIVED FROM ICU 1530. PT STATES PAIN MANAGED WITH AVIAL MEDS. LEGS ARE WEEPING S/S MOSTLY YELLOW FLUID. ABLE TO TAKE PILLS WHOLE WITH WATER. ON CLEAR LIQUID DIET. ABLE TO MAKE NEEDS KNOWN. IJ CENTRAL LINE ON TKO FLUIDS. BROWN QUITE SMALL STOOL DURING TRANPORT TO BED FROM ICU. MCKEON DRAINING CLEAR YELLOW FLUID. BED IN LOW POSITION, CALL LITE IN REACH, CALLS APPROP
[2019-12-10 04:03] LABS: BASOPHILS ABSOLUTE AUTO 0.09 K/mm3 (0.00-0.23); BASOPHILS PERCENT AUTO 1 % (0-2); EOSINOPHILS ABSOLUTE AUTO 0.14 K/mm3 (0.00-0.68); EOSINOPHILS PERCENT AUTO 1 % (0-6); Hematocrit 44.1 % (33.0-51.0); Hemoglobin 14.2 g/dL (11.5-16.0); IMMATURE GRAN ABSOLUTE AUTO 0.07 K/mm3 (0.00-0.10); IMMATURE GRAN PERCENT AUTO 1 % (0-1); LYMPHOCYTES ABSOLUTE AUTO 1.11 K/mm3 (0.84-5.20); LYMPHOCYTES PERCENT AUTO 9 % (21-46); MONOCYTES ABSOLUTE AUTO 0.55 K/mm3 (0.16-1.47); MONOCYTES PERCENT AUTO 4 % (4-13); Mean Corpuscular HGB 31.4 pg (26.0-34.0); Mean Corpuscular HGB Conc 32.2 g/dL (31.5-36.5); Mean Platelet Volume 10.2 fL (9.1-12.4); NEUTROPHILS ABSOLUTE AUTO 10.95 K/mm3 (1.96-9.15); NEUTROPHILS PERCENT AUTO 85 % (41-73); Platelet Count 210 K/mm3 (150-400); RDW Standard Deviation 60.3 fL (35.1-46.3); Red Blood Cell Count 4.52 M/mm3 (3.80-5.20); White Blood Cell Count 12.91 K/mm3 (4.00-11.30)
[2019-12-10 04:04] LABS: Mean Corpuscular Volume 98 fL (80-100)
[2019-12-10 04:31] LABS: Magnesium, Blood 1.8 mg/dL (1.6-2.4)
[2019-12-10 04:34] LABS: Albumin, Blood 2.1 g/dL (3.4-5.0); Anion Gap 13 mmol/L (6-16); Blood Urea Nitrogen 32 mg/dL (8-24); Bun/Creatinine Ratio 21.2 (12.0-20.0); CO2, Blood 22 mmol/L (21-32); Calcium, Blood 7.9 mg/dL (8.5-10.1); Chloride, Blood 88 mmol/L (98-108); Creatinine, Blood 1.51 mg/dL (0.40-1.00); Glomerular Filtration Rate 36 (60-); Glucose, Blood 58 mg/dL (70-99); Phosphorus, Blood 4.1 mg/dL (2.5-4.9); Potassium, Blood 4.1 mmol/L (3.5-5.5); Sodium, Blood 123 mmol/L (136-145)
--- NOTE | 2019-12-10 05:24 | NUR ---
SHIFT SUMMARY PT A&O X4. VSS. MONITOR SHOWS SB-SR, HR 50's-70's. SPO2 > 92% ON RA. PT C/O PAIN IN BILAT LEGS, MEDICATED PER PT REQUEST/EMAR X2 THIS SHIFT W/ PT REPORT OF IMPROVEMENT. BLE NOTED TO BE RED, HOT, SWOLLEN, & WEEPING CLEAR/YELLOW DRAINAGE. MULT WOUNDS NOTED TO BLE & COCCYX, SEE WOUND PHOTOS IN CHART. PEDAL PULSES PRESENT USING DOPPLER. MCKEON CATH PATENT & DRAINING CLEAR YELLOW URINE. PT W/ LOOSE, BROWN STOOLS THIS SHIFT. Q2H REPOSITIONING W/ PRN AUBREY/CATH CARE & ATTENDS CHANGES. NO EVENTS OVER NIGHT. WILL CONTINUE TO MONITOR & PROVIDE CARE UNTIL REPORT OFF TO DAY SHIFT RN.
--- NOTE | 2019-12-10 10:22 | NUR ---
Spoke with Bedside SOREN Ramos prior to visiting with Pt. Rachel expresses concerns regarding Pt's blood pressure. Discussed the possibility of needing to be transfered back to ICU if pressure continues to drop. Pt resting in bed upon arrival. Pt reports 8/10 pain in her legs. Pt just received pain medication. Will review effectiveness as needed. Engaged in therapeutic discussion regarding goals of care. Pt reports wishes remain the same of wanting to D/C home with hospice. Discussed her goals during hospital stay. Discussed concerns regarding her blood pressure. Discussed option including continued supportive treatment and transfering back to ICU as needed or comfort care. Pt reports she would like to continue supportive treatment and if her condition declines she does not want to be transfered back to ICU and would like to be placed on comfort care. Educated on comfort care philosophy with V/U made by Pt. Pt reports no other concerns at this time. Pt expresses appreciation of visit. Spoke to Bedside SOREN Ramos and relayed Pt's wishes. Palliative Care will remain available.
--- NOTE | 2019-12-10 10:30 | NUR ---
ASSUMED CARE REPORT RECEIVED, CARE ASSUMED AT 0700 FROM SOREN MONTERO. PT RESTING IN BED QUIETLY, AROUSES EASILY FOR ASSESSMENT. PT REPORTS "10/10 PAIN," BUT DECLINES MEDICATIONS. PT STATES, "I WILL BE OUT ALL DAY IF I DO THAT. I WILL LET YOU KNOW IF IT GETS TOO BAD." PT HYPOTENSIVE. DISCUSSED CONCERNS WITH PT. PT STATES SHE WISHES TO CONTINUE WITH TREATMENT UNTIL HER BROTHER CAN VISIT HER FROM [place], BUT THAT WHEN SHE IS DISCHARGED SHE WANTS TO BE ON HOSPICE. SPOKE WITH SHAUN IN PALLIATIVE CARE WHO STATES HE SPOKE WITH PT'S BROTHER YESTERDAY AND THAT HE IS NOT INTENDING ON COMING. SHAUN TO BEDSIDE TO DISCUSS WITH PT HER WISHES. SEE PALLIATIVE CARE NOTE. SINCE THEN, PT HAS CONTINUED TO BE SLEEPY. DISCUSS NEED FOR REPOSITIONING Q2H WITH PT AND SHE REPEATEDLY DECLINES, STATING, "NO, I AM COMFORTABLE." BP CONTINUES TO BE LOW BUT CONSISTENT. PT CONVERTED INTO AFIB. DISCUSSED LOW BP, HOLDING OF BUMEX, CONVERSION TO AFIB, AND PT'S UPDATED WISHES PER PALLIATIVE CARE NOTE. NO NEW ORDERS AT THIS TIME. PT CONTINUES TO DECLINE PAIN MEDICATION STATING, "I AM JUST TOO SLEEPY."
--- NOTE | 2019-12-10 17:18 | NUR ---
SUMMARY SINCE PREVIOUS NOTE, PT HAS CONTINUED TO BE SOMEWHAT SLEEPY, BUT AROUSES EASILY FOR ASSESSMENTS. TALKATIVE, WATCHING TV INTERMITTENTLY, AND CALLING APPROPRIATELY FOR NEEDS. PT HAS CONTINUED TO DENY PAIN MEDICINE REGARDLESS OF PAIN BUT STATES, "I WILL LET YOU KNOW." PT VERY PARTICULAR ABOUT REPOSITIONING. ALLOWS FOR CARES WHEN SHE WANTS. BILATERAL LEGS WEEPING, LINENS CHANGED NEEDED. BP IMPROVED THIS AFTERNOON. CONTINUES TO BE IN AFIB WITH CONTROLLED RATE. SPO2 90'S ON ROOM AIR. AFEBRILE. GOOD URINE OUTPUT FROM MCKEON. SMALL BOWEL MOVEMENTS TODAY. PT HAS MODERATE APPETITE.
--- NOTE | 2019-12-10 22:35 | NUR ---
ASSUMED CARE OF PATIENT AT APPROXIMATELY 1905 FROM AURORA Chaidez RN. PATIENT ALERT AND ORIENTED; SLOW TO RESPOND AT TIMES. PATIENT REPORTS PAIN BUT REPORTS NOT BAD ENOUGH FOR PAIN MEDS AT THIS TIME; WILL CALL WHEN SHE WOULD NEED MEDICATION. PATIENT DENIES DIZZINESS OR NAUSEA. AFIB ON TELE; OXYGEN SATURATION ABOVE 90% ON ROOM AIR. CENTRAL LINE TKO. URINARY CATH PATENT. BILAT LEGS WHEEPING; PAD PLACED UNDER LEGS. PATIENT CURRENTLY RESTING IN BED; CALL LIGHT IN REACH; BED IN LOWEST POSISTION; BED ALARM ON; WILL CONTINUE TO MONITOR AND ASSESS UNTIL END OF SHIFT.
[2019-12-11 04:40] LABS: Hematocrit 39.5 % (33.0-51.0); Hemoglobin 13.1 g/dL (11.5-16.0)
[2019-12-11 05:03] LABS: Magnesium, Blood 1.6 mg/dL (1.6-2.4)
[2019-12-11 05:04] LABS: Anion Gap 9 mmol/L (6-16); Blood Urea Nitrogen 25 mg/dL (8-24); CO2, Blood 29 mmol/L (21-32); Calcium, Blood 7.9 mg/dL (8.5-10.1); Chloride, Blood 91 mmol/L (98-108); Creatinine, Blood 1.19 mg/dL (0.40-1.00); Glomerular Filtration Rate 48 (60-); Glucose, Blood 65 mg/dL (70-99); Phosphorus, Blood 3.7 mg/dL (2.5-4.9); Potassium, Blood 2.6 mmol/L (3.5-5.5); Sodium, Blood 129 mmol/L (136-145)
--- NOTE | 2019-12-11 05:45 | NUR ---
2.6 POTASSIUM; CALLED DR. NGUYEN; ORDERS RECIEVED FOR PO.
--- NOTE | 2019-12-11 06:22 | NUR ---
DR. BECKER BEDSIDE; ORDERS FOR 20MEQ IV POTASSIUM CHLORIDE; STAT POTASSIUM LAB AT 1100; RN TO CALL WITH LAB RESULTS BY 1200 AND DECREASE BUMEX FROM BIDD TO DAILY. WILL CONTINUE TO MONITOR AND ASSESS UNTIL END OF SHIFT.
--- NOTE | 2019-12-11 06:24 | NUR ---
PATIENT SLEPT ABOUT NINE HOURS. VSS. SEE PREVIOUS NOTES FOR UPDATES. WILL CONTINUE TO MONITOR AND ASSESS UNTIL END OF SHIFT.
--- NOTE | 2019-12-11 17:18 | NUR ---
SHIFT SUMMARY PT ALERT AND ORIENTED. PT LETHARGIC THIS SHIFT, BUT EASILY AWAKENS. VS STABLE. HR AFIB. O2 SATS REMAIN ABOVE 90% ON RA. PT REFUSING REPOSITIONING, BUT ENCOURAGED TO MOVE TO PREVENT PRESSURE ULCERS. WEEPING EDEMA TO BLE. LEGS ELEVATED ON PILLOWS. WILL CONTINUE TO MONITOR AND REPORT TO ONCOMING RN. CALL LIGHT IN REACH.
[2019-12-12 06:07] LABS: Hemoglobin 13.5 g/dL (11.5-16.0)
--- NOTE | 2019-12-12 06:24 | NUR ---
SHIFT SUMMARY PT SLEEPING IN ROOM COMFORTABLY AT THIS TIME. NO ACUTE CHANGES IN STATUS T/O NIGHT. PT SLEPT WELL. WOKE ONCE FOR PAIN MEDS. PT MEDICATED PER EMAR. PT DENED ANY CP OR SOB. RESP EVEN UNLABORED ON RA W/ SATS >92%. PT TURNED FOR COMFORT. REFUSED SOME TURNS D/T COMFORTABLE AND WANTED TO SLEEP. DENIED OTHER NEEDS. CALL LIGHT IN REACH.
[2019-12-12 06:43] LABS: Magnesium, Blood 1.4 mg/dL (1.6-2.4)
[2019-12-12 06:49] LABS: Anion Gap 9 mmol/L (6-16); Blood Urea Nitrogen 18 mg/dL (8-24); Bun/Creatinine Ratio 16.2 (12.0-20.0); CO2, Blood 32 mmol/L (21-32); Chloride, Blood 93 mmol/L (98-108); Creatinine, Blood 1.11 mg/dL (0.40-1.00); Glomerular Filtration Rate 52 (60-); Phosphorus, Blood 3.1 mg/dL (2.5-4.9); Sodium, Blood 134 mmol/L (136-145)
[2019-12-12 06:51] LABS: Glucose, Blood 47 mg/dL (70-99)
[2019-12-12 13:39] LABS: Magnesium, Blood 1.9 mg/dL (1.6-2.4); Potassium, Blood 3.8 mmol/L (3.5-5.5)
--- NOTE | 2019-12-12 17:39 | NUR ---
SHIFT SUMMARY PT ALERT AND ORIENTED. VS STABLE. HR AFIB 100-120. BP STABLE. O2 SATS REMAIN ABOVE 90% ON RA. PT ABLE TO AMBULATE TO CHAIR WITH 2 PERSON ASSIST AND FWW THIS SHIFT. PT UP TO RECLINER MOST OF SHIFT WITH LEGS ELEVATED ON PILLOWS. BLE WITH WEEPING EDEMA. PT COMPLAINS OF PAIN WITH MOVEMENT THAT RESOLVES WITH REST. WILL CONTINUE TO MONITOR AND REPORT TO ONCOMING RN. CALL LIGHT IN REACH.
--- NOTE | 2019-12-12 21:55 | NUR ---
TRANSFER NOTE PT MEDICAL W/ TELE STATUS, A&O X4. VSS. MONITOR SHOWING AFIB, HR 110's. SPO2 > 92% ON RA. BLE RED & SWOLLEN W/ WOUNDS NOTED TO BLE & COCCYX, SEE WOUND PHOTOS IN CHART. BLE WEEPING YELLOW DRAINAGE W/ LEFT LEG DRAINING MORE THAN RIGHT. REPORT CALLED TO SURGICAL FLOOR RN ACCEPING PT @ APPROX 2140. PT TRANSFERRED TO RM 210 IN PT BED W/ BELONGINGS, BY 2 PCT's @ APPROX 2150.
--- NOTE | 2019-12-12 22:27 | NUR ---
PT ARRIVED TO UNIT FROM PCU AT APPROX 2200. INITIAL ADMITTING DIAGNOSIS ACUTE RESPIRATORY FAILURE. HR 106. ALL OTHER VS WNL. O2 93% ON RA. PT DENIES SOB. LUNGS CLEAR THROUGHOUT. REDNESS AND 3+ PITTING EDEMA NOTED TO BLE. SEVERAL OOZING ULCERATIONS TO BLE ALSO NOTED. DRG YELLOW IN COLOR. FLUIDS TKO. PT ORIENTED TO ROOM AND DENIES FURTHER NEEDS AT THIS TIME. CALL LIGHT IN REACH.
[2019-12-13 05:51] LABS: Hematocrit 44.9 % (33.0-51.0); Hemoglobin 14.4 g/dL (11.5-16.0)
[2019-12-13 06:11] LABS: Anion Gap 6 mmol/L (6-16); Blood Urea Nitrogen 14 mg/dL (8-24); Bun/Creatinine Ratio 14.8 (12.0-20.0); CO2, Blood 34 mmol/L (21-32); Calcium, Blood 8.1 mg/dL (8.5-10.1); Chloride, Blood 94 mmol/L (98-108); Creatinine, Blood 0.95 mg/dL (0.40-1.00); Glomerular Filtration Rate >60 (60-); Glucose, Blood 72 mg/dL (70-99); Magnesium, Blood 1.8 mg/dL (1.6-2.4); Phosphorus, Blood 2.7 mg/dL (2.5-4.9); Potassium, Blood 3.4 mmol/L (3.5-5.5); Sodium, Blood 134 mmol/L (136-145)
[2019-12-13 09:01] LABS: Albumin/Globulin Ratio 0.7 (0.8-1.8); Bilirubin, Direct 0.8 mg/dL (0.0-0.3); Bilirubin, Indirect 0.6 mg/dL (0.1-0.7); Bilirubin, Total 1.4 mg/dL (0.1-1.0)
--- NOTE | 2019-12-13 18:44 | NUR ---
SHIFT SUMMARY PT A&OX4, VSS, RA, DENIES SOB, TCDB & I.S. EDU & ENC Q1H, DRESSINGS APPLIED TO OPEN WOUNDS ON LEGS AT BEGINNING OF SHIFT AND CHANGED AT END OF SHIFT, IRIS ELBOWS DRESSINGS APPLIED. BEDBATH AND MCKEON CARE PROVIDED. PT/OT WORKED WITH PT; PT AMBULATED TO BRP. MCKEON PATENT & DRAINING YELLOW URINE, STAT LOCK IN PLACE, OFF FLOOR. IJ IN RIGHT NECK, IVF @ TKA AND ABX INFUSED PER EMAR. WILL REPORT TO ONCOMING NOC RN.
--- NOTE | 2019-12-14 03:47 | NUR ---
SHIFT SUMMARY PT A/O X4. PT HAS BEEN REPOSITIONED THROUGHOUT THE SHIFT WITH LEGS ELEVATED ON PILLOWS. WHEEPING EDEMA TO BLE; DRESSINGS IN PLACE. PAIN MANAGED WITH ULTRAM PER ORDER; SEE EMAR. MCKEON PATENT, STAT LOCK IN PLACE. FLUIDS HAVE BEEN RUNNING TKO THROUGH CENTRAL LINE DURING THE SHIFT. PT TOLERATING PO INTAKE. NO ACUTE CHANGES.
[2019-12-14 04:15] LABS: BASOPHILS ABSOLUTE AUTO 0.11 K/mm3 (0.00-0.23); BASOPHILS PERCENT AUTO 1 % (0-2); EOSINOPHILS ABSOLUTE AUTO 0.69 K/mm3 (0.00-0.68); EOSINOPHILS PERCENT AUTO 7 % (0-6); Hematocrit 39.2 % (33.0-51.0); Hemoglobin 12.7 g/dL (11.5-16.0); IMMATURE GRAN ABSOLUTE AUTO 0.09 K/mm3 (0.00-0.10); IMMATURE GRAN PERCENT AUTO 1 % (0-1); LYMPHOCYTES ABSOLUTE AUTO 1.54 K/mm3 (0.84-5.20); LYMPHOCYTES PERCENT AUTO 17 % (21-46); MONOCYTES PERCENT AUTO 9 % (4-13); Mean Corpuscular HGB 30.9 pg (26.0-34.0); Mean Corpuscular HGB Conc 32.4 g/dL (31.5-36.5); Mean Corpuscular Volume 95 fL (80-100); Mean Platelet Volume 9.5 fL (9.1-12.4); NEUTROPHILS ABSOLUTE AUTO 6.09 K/mm3 (1.96-9.15); NEUTROPHILS PERCENT AUTO 65 % (41-73); Platelet Count 142 K/mm3 (150-400); RDW Coefficient Variation 17.2 % (11.7-14.2); RDW Standard Deviation 59.3 fL (35.1-46.3); Red Blood Cell Count 4.11 M/mm3 (3.80-5.20); White Blood Cell Count 9.32 K/mm3 (4.00-11.30)
[2019-12-14 04:29] LABS: Albumin, Blood 1.8 g/dL (3.4-5.0); Anion Gap 5 mmol/L (6-16); Blood Urea Nitrogen 15 mg/dL (8-24); CO2, Blood 35 mmol/L (21-32); Calcium, Blood 7.8 mg/dL (8.5-10.1); Chloride, Blood 94 mmol/L (98-108); Creatinine, Blood 1.07 mg/dL (0.40-1.00); Glomerular Filtration Rate 54 (60-); Glucose, Blood 82 mg/dL (70-99); Magnesium, Blood 1.5 mg/dL (1.6-2.4); Phosphorus, Blood 2.8 mg/dL (2.5-4.9); Potassium, Blood 3.4 mmol/L (3.5-5.5); Sodium, Blood 134 mmol/L (136-145)
--- NOTE | 2019-12-14 17:43 | NUR ---
SHIFT SUMMARY PT A&OX4, VSS, RA, TELE AFIB 98, MCKEON PATENT & DRAINING YELLOW URINE, STAT LOCK IN PLACE, OFF FLOOR. DRESSINGS CHANGED THIS SHIFT. UP TO CHAIR, AMBULATED TO BRP AND IN HALLWAYS WITH SBA. MIKEL PO. EXT DWELLING PLACED IN MAURICIO; CENTRALINE TO BE REMOVED TONIGHT. WILL REPORT TO ONCOMING GRICELDA RN.
--- NOTE | 2019-12-14 21:32 | NUR ---
CENTRAL LINE DC'D. FIRM PRESSURE HELD FOR 20MIN. NO BLEEDING FROM SITE. VASELINE GAUZE AND OPSITE APPLIED.
--- NOTE | 2019-12-15 03:54 | NUR ---
SHIFT SUMMARY PT IS A/O X4. STARTED SHIFT UP IN CHAIR, NEEDED 1 ASSIST BACK TO BED. LEGS ELEVATED ON PILLOWS. PT HAS DENIED NEED FOR PAIN MEDS SO FAR DURING THE NIGHT. CENTRAL LINE WAS DC'D THIS SHIFT BY TRAINED RN. NO COMPLICATIONS NOTED. DRESSING IN PLACE AT SITE. NO ACUTE CHANGES OTHERWISE.
--- NOTE | 2019-12-15 04:56 | NUR ---
DRESSINGS TO BLE CHANGED AT THIS TIME.
[2019-12-15 05:01] LABS: BASOPHILS ABSOLUTE AUTO 0.17 K/mm3 (0.00-0.23); BASOPHILS PERCENT AUTO 2 % (0-2); EOSINOPHILS ABSOLUTE AUTO 0.61 K/mm3 (0.00-0.68); EOSINOPHILS PERCENT AUTO 7 % (0-6); Hematocrit 39.7 % (33.0-51.0); Hemoglobin 12.9 g/dL (11.5-16.0); IMMATURE GRAN ABSOLUTE AUTO 0.13 K/mm3 (0.00-0.10); IMMATURE GRAN PERCENT AUTO 2 % (0-1); LYMPHOCYTES ABSOLUTE AUTO 1.76 K/mm3 (0.84-5.20); LYMPHOCYTES PERCENT AUTO 20 % (21-46); MONOCYTES ABSOLUTE AUTO 0.77 K/mm3 (0.16-1.47); MONOCYTES PERCENT AUTO 9 % (4-13); Mean Corpuscular HGB 30.7 pg (26.0-34.0); Mean Corpuscular HGB Conc 32.5 g/dL (31.5-36.5); Mean Corpuscular Volume 95 fL (80-100); Mean Platelet Volume 10.1 fL (9.1-12.4); NEUTROPHILS ABSOLUTE AUTO 5.48 K/mm3 (1.96-9.15); NEUTROPHILS PERCENT AUTO 62 % (41-73); Platelet Count 159 K/mm3 (150-400); RDW Coefficient Variation 17.1 % (11.7-14.2); RDW Standard Deviation 58.6 fL (35.1-46.3); White Blood Cell Count 8.92 K/mm3 (4.00-11.30)
[2019-12-15 05:22] LABS: Albumin, Blood 1.8 g/dL (3.4-5.0); Anion Gap 7 mmol/L (6-16); Blood Urea Nitrogen 14 mg/dL (8-24); Bun/Creatinine Ratio 13.1 (12.0-20.0); CO2, Blood 31 mmol/L (21-32); Calcium, Blood 7.9 mg/dL (8.5-10.1); Chloride, Blood 94 mmol/L (98-108); Creatinine, Blood 1.07 mg/dL (0.40-1.00); Glomerular Filtration Rate 54 (60-); Glucose, Blood 77 mg/dL (70-99); Potassium, Blood 3.6 mmol/L (3.5-5.5); Sodium, Blood 132 mmol/L (136-145)
--- NOTE | 2019-12-15 17:49 | NUR ---
SUMMARY PT ABLE TO SHOWER WITH MINIMAL ASSIST AND SAT IN CHAIR FOR SEVERAL HOURS. LEGS EDEMATOUS AND OOZING SEROUS FLUIDS. PT STATES THAT PRIOR TO BED SHE WILL ALLOW DRESSINGS TO BE APPLIED TO BUTTOCKS.
[2019-12-16 04:27] LABS: Hematocrit 39.4 % (33.0-51.0); Hemoglobin 12.9 g/dL (11.5-16.0)
--- NOTE | 2019-12-16 04:33 | NUR ---
SHIFT SUMMARY: PT A&O X4. VS WNL THROUGHOUT SHIFT. WOUNDS TO BLE WRAPPED WITH NON ADHERENT DRESSINGS, KERLEX AND NETTING. ULCER TO LLE DRAINING LARGE AMOUNT OF SEROUS FLUID. 3+ PITTING EDEMA. REDNESS TO BLE IMPROVING. BOTH EXTREMITIES ELEVATED. MEPILEX DRESSINGS PLACED TO ULCERS ON BUTTOCKS. PT AMBULATING TO BATHROOM WITH FWW AND MINIMAL ASSIST. ONE BM THIS SHIFT. PT REPOSITIONING SELF IN BED WELL. MCKEON PATENT AND DRAINING YELLOW URINE. FLUIDS TKO. ABX INFUSING PER EMAR.
[2019-12-16 04:49] LABS: Anion Gap 8 mmol/L (6-16); Blood Urea Nitrogen 14 mg/dL (8-24); Bun/Creatinine Ratio 13.5 (12.0-20.0); CO2, Blood 30 mmol/L (21-32); Calcium, Blood 8.1 mg/dL (8.5-10.1); Chloride, Blood 95 mmol/L (98-108); Creatinine, Blood 1.04 mg/dL (0.40-1.00); Glomerular Filtration Rate 56 (60-); Glucose, Blood 74 mg/dL (70-99); Magnesium, Blood 1.8 mg/dL (1.6-2.4); Phosphorus, Blood 2.9 mg/dL (2.5-4.9); Potassium, Blood 3.6 mmol/L (3.5-5.5); Sodium, Blood 133 mmol/L (136-145)
--- NOTE | 2019-12-16 17:26 | NUR ---
SUMMARY NO ACUTE CHANGES T/O SHIFT. MCKEON CATH DRAINING YELLOW URINE. PT REPORTED BM. AMBULATES TO RESTROOM W/1 PERSON ASSIST, GAIT BELT AND FWW. CALL LIGHT IN REACH.
[2019-12-17 05:20] LABS: Hematocrit 40.7 % (33.0-51.0); Hemoglobin 13.1 g/dL (11.5-16.0)
[2019-12-17 05:43] LABS: Anion Gap 6 mmol/L (6-16); Blood Urea Nitrogen 15 mg/dL (8-24); Bun/Creatinine Ratio 13.8 (12.0-20.0); CO2, Blood 31 mmol/L (21-32); Calcium, Blood 8.2 mg/dL (8.5-10.1); Chloride, Blood 95 mmol/L (98-108); Creatinine, Blood 1.09 mg/dL (0.40-1.00); Glomerular Filtration Rate 53 (60-); Glucose, Blood 83 mg/dL (70-99); Magnesium, Blood 1.8 mg/dL (1.6-2.4); Phosphorus, Blood 3.2 mg/dL (2.5-4.9); Potassium, Blood 4.3 mmol/L (3.5-5.5); Sodium, Blood 132 mmol/L (136-145)
--- NOTE | 2019-12-17 05:56 | NUR ---
SHIFT SUMMARY LYING IN SEMI FOWLERS WITH EYES OPEN WHILE WATCHING TV. AAO X3, HAS RESTED WELL. RESPIRATIONS EVEN AND UNLABORED ON ROOM AIR. LUNG SOUNDS CLEAR AND DIMINSHED IN BASES BILATERALLY. ABDOMEN SOFT AND NONDISTENDED. BOWEL SOUNDS PRESENT IN ALL QUADS. LEFT UPPER ARM POWERGLIDE IS PATENT, FLUSHING WITH EASE AND GOOD BLOOD RETURN NOTED. AM LABS DRAWN FROM POWERGLIDE AND SENT TO LAB. BLE PLACED ON PILLOWS WITH DRESSING C/D/I, +3/+2 EDEMA NOTED. MCKEON CATH IS PATENT, DRAINING CLEAR YELLOW URINE TO GRAVITY. DENIES PAIN, DISCOMFORT, OR FURTHER NEEDS AT THIS TIME. SAFETY MEASURES IN PLACE. WILL CONTINUE TO MONITOR AND GIVE HAND OFF TO ONCOMING SHIFT USING SBAR DURING BEDSIDE REPORT.
--- NOTE | 2019-12-17 10:22 | NUR ---
CLAMPED MCKEON CATH FOR BLADDER TRAINING.
--- NOTE | 2019-12-17 11:42 | NUR ---
UNCLAMPED MCKEON CATH PT REPORTED BLADDER FULL SENSATION.
--- NOTE | 2019-12-17 16:49 | NUR ---
PERFORMED BLADDER TRAINING T/O DAY. DC'D MCKEON CATH PER ORDERS.
--- NOTE | 2019-12-17 17:51 | NUR ---
SUMMARY NO ACUTE CHANGES T/O SHIFT. CHANGED DRESSINGS TO BLE. PT FEELS ULCERS TO BLE "LOOK WORSE." TOOK PHOTOS AND PLACED IN CHART. CHANGED DRESSINGS TO ELBOWS. PERFORMED BLADDER TRAINING AND DC'D MCKEON CATH PER DR BECKER'S ORDERS. PT 1 SBA TO RESTROOM. HAD MULTIPLE BMS TODAY. CALL LIGHT IN REACH.
[2019-12-18 05:46] LABS: Hematocrit 42.1 % (33.0-51.0); Hemoglobin 13.5 g/dL (11.5-16.0)
--- NOTE | 2019-12-18 05:53 | NUR ---
SHIFT SUMMARY LYING IN SEMI FOWLERS WITH EYES OPEN WHILE WATCHING TV. AAO X3, HAS RESTED WELL. RESPIRATIONS EVEN AND UNLABORED ON ROOM AIR. LUNG SOUNDS CLEAR AND DIMINSHED IN BASES BILATERALLY. ABDOMEN SOFT AND NONDISTENDED. BOWEL SOUNDS PRESENT IN ALL QUADS. LEFT UPPER ARM POWERGLIDE IS PATENT, FLUSHING WITH EASE AND GOOD BLOOD RETURN NOTED. AM LABS DRAWN FROM POWERGLIDE AND SENT TO LAB. BLE PLACED ON PILLOWS WITH DRESSING C/D/I, +3 EDEMA NOTED. CONTINENT OF BOWEL AND BLADDER, HAS URINATED X3 AND HAD 2 BM'S THIS SHIFT. DENIES PAIN, DISCOMFORT, OR FURTHER NEEDS AT THIS TIME. SAFETY MEASURES IN PLACE. WILL CONTINUE TO MONITOR AND GIVE HAND OFF TO ONCOMING SHIFT USING SBAR DURING BEDSIDE REPORT.
[2019-12-18 06:24] LABS: Albumin, Blood 2.1 g/dL (3.4-5.0); Anion Gap 9 mmol/L (6-16); Blood Urea Nitrogen 16 mg/dL (8-24); Bun/Creatinine Ratio 15.2 (12.0-20.0); CO2, Blood 29 mmol/L (21-32); Calcium, Blood 8.2 mg/dL (8.5-10.1); Chloride, Blood 96 mmol/L (98-108); Creatinine, Blood 1.05 mg/dL (0.40-1.00); Glomerular Filtration Rate 55 (60-); Glucose, Blood 75 mg/dL (70-99); Magnesium, Blood 1.7 mg/dL (1.6-2.4); Sodium, Blood 134 mmol/L (136-145)
--- NOTE | 2019-12-18 10:05 | NUR ---
Received a call from PEPITO Nolasco RN. She is requesting clarification on whether pt is going home with HH or hospice. Chart reviewed. Palliative care note on 12/10/19 indicates pt is interested in hospice services at time of discharge. On 12/12/19 hospitalist progress note states pt had changed her mind and now wants to pursue going home with home health services. Met with Marcy in her room this morning. She is sitting up in the bedside chair and is welcoming of a visit. She states that Dr. Tiwari said she could go home either today or tomorrow. She reports Dr. Caruso told her that she could discharge today. She is hoping to be able to stay one more night in the hospital however she reports that if she needs to go home today that she will. She lives in a home with two roommates (Felisa and Mor). She reports that she normally lives in the downstairs part of the home, however recently she moved to a bedroom upstairs as navigating stairs is impossible for her to do right now. She confirms her desire for HH and wants to get stronger. She states she is getting some equipment from [facility] (walker, shower bench and BSC) to have at home. She states she uses a transportation company to get to and from appointments. She is unable to recall the name at this time. She states someone was coming into her home to change her dressings prior to coming into the hospital. Updated PEPITO Nolasco, after my visit that pt is confirming her desire for going home with HH. Spoke with Olivia, who states that she is waiting to hear from Dr. Caruso if the discharge will have today or tomorrow. PC will remain available.
--- NOTE | 2019-12-18 18:17 | NUR ---
SHIFT SUMMARY PT HAS DONE WELL TODAY. HAS MADE ARRANGEMENTS FOR HOME TOMORROW. HAS CAREGIVERS SET UP. L LEG CONTINUES TO WEEP. UP W/ SBA IN ROOM W/ FWW.
[2019-12-19 05:53] LABS: Anion Gap 7 mmol/L (6-16); Blood Urea Nitrogen 15 mg/dL (8-24); Bun/Creatinine Ratio 14.4 (12.0-20.0); CO2, Blood 30 mmol/L (21-32); Calcium, Blood 8.3 mg/dL (8.5-10.1); Chloride, Blood 96 mmol/L (98-108); Creatinine, Blood 1.04 mg/dL (0.40-1.00); Glomerular Filtration Rate 56 (60-); Glucose, Blood 71 mg/dL (70-99); Magnesium, Blood 1.6 mg/dL (1.6-2.4); Phosphorus, Blood 3.1 mg/dL (2.5-4.9); Potassium, Blood 4.1 mmol/L (3.5-5.5); Sodium, Blood 133 mmol/L (136-145)
--- NOTE | 2019-12-19 05:56 | NUR ---
SHIFT SUMMARY PT A/OX4. DENIES SOB OR DYSPNEA, SPO2 ABOVE 93% ON RA. RESPIRATIONS APPEAR EVEN AND UNLABORED. DRESSING TO LLE EXTREM CHANGED THIS SHIFT R/T YELLOW/SEROUS DRAINAGE. DRESSING TO RLE C.D.I. 3+ EDEMA TO BLE, BOTH ELEVATED ON PILLOWS T/O SHIFT. PT AMBULATING TO BATHROOM, HAS VOIDED SEVERAL TIMES. MIKEL PO INTAKE. ABX INFUSED PER ORDERS. DENIES PAIN OR DISCOMFORT. IS EAGERLY AWAITING POSSIBLE DISCHARGE HOME TODAY. AWAITING MORNING LABS. PT APPEARS TO BE CURRENTLY RESTING IN BED WITH EYES CLOSED, HAS CALL LIGHT IN REACH.
[2019-12-19 07:15] LABS: Hematocrit 40.5 % (33.0-51.0)
--- NOTE | 2019-12-19 10:08 | NUR ---
DR STEWART HERE RECENTLY TO SEE PT, DISCUSSED DISCHARGE INCLUDING THAT IRRIGATION TAX ASSESSOR COLLECTOR HAS BEEN TO TALK WITH PT.
--- NOTE | 2019-12-19 12:17 | NUR ---
PT REPORTS TALKING TO JUD [facility] WHO REPORTED THAT "EVERYTHING IS TAKEN CARE OF". PT REPORTS THAT SHE WILL HAVE CAREGIVERS COMING TODAY TO ASSIST HER PER JUD. PT REPORTS THAT SHE WOULD BE NEEDING A RIDE FROM [facility] AND THAT SHE HAS USED THEM SEVERAL TIMES.
--- NOTE | 2019-12-19 14:56 | NUR ---
DISCHARGE: PT EATING AND DRINKING, VOIDING. PT REPORTS HAVING CAREGIVERS MEETING HER AT HER HOUSE WITH APPR EQUIP. PT REPORTS UNDERSTANDING OF DISCHARGE INSTRUCTIONS AND AWARE OF H.H.. PT REPORTS HAVING A FRIEND THAT IS A CAREGIVER THAT WILL HELP HER NEEDED WELL. PT POWERGLIDE OUT WNL, NO OTHER IV'S IN PLACE. ALL PT'S DRESSINGS WERE PHOTOGRAPHED WITH NEW DRESSINGS PLACED PRIOR TO PT LEAVING. PT OUT BY TRANSPORT WITH BELONGINGS AND DRESSING SUPPLIES. BAGGAGE AGENT AND OTHER STAFF ASSISTED WITH DISCHARGE INCLUDING H.H., SUPPLIES, CAREGIVERS. PT REPORTS THAT SHE HAS TALKED WITH FAMILY THAT SHE IS GOING HOME TODAY. MEDICATIONS FAXED TO PHARMACY OF HER CHOICE BY PAPER [employer] GRADER WHO ALSO ASSISTED WITH DISCHARGE PAPERWORK. PT OUT BY TRANSPORT.
== END 2019-12-19 14:56 | disposition home or self-care (01) | DRG 291 ==
LOC: ER 23:39 → ICUE 12-08 01:25 → ICUW 12-08 01:25 → ICUE 12-08 02:45 → PCU 12-09 15:34 → SURS 12-12 21:54
PROVIDERS: Emergency Medicine; Internal Medicine Critical Care Medicine; Internal Medicine Nephrology; Internal Medicine Pulmonary Disease; ADMIT Family Medicine
PROC: 05HM33Z Insertion of Infusion Device into Right Internal Jugular Vein, Percutaneous Approach (ICD-10-PCS; principal; 2019-12-08)
PROC: 3E033XZ Introduction of Vasopressor into Peripheral Vein, Percutaneous Approach (ICD-10-PCS; 2019-12-08)
DX: I13.0 Hypertensive heart and chronic kidney disease with heart failure and stage 1 through stage 4 chronic kidney disease, or unspecified chronic kidney disease (principal); I50.23 Acute on chronic systolic (congestive) heart failure; J96.01 Acute respiratory failure with hypoxia; R57.0 Cardiogenic shock; N17.9 Acute kidney failure, unspecified; E87.2 Acidosis; E87.1 Hypo-osmolality and hyponatremia; L03.115 Cellulitis of right lower limb; L03.116 Cellulitis of left lower limb; N39.0 Urinary tract infection, site not specified; J98.11 Atelectasis; Z51.5 Encounter for palliative care; E87.5 Hyperkalemia; Z20.828 Contact with and (suspected) exposure to other viral communicable diseases; N18.9 Chronic kidney disease, unspecified; E83.42 Hypomagnesemia; E16.2 Hypoglycemia, unspecified; E83.51 Hypocalcemia; I48.0 Paroxysmal atrial fibrillation; I27.20 Pulmonary hypertension, unspecified; I34.0 Nonrheumatic mitral (valve) insufficiency; I37.1 Nonrheumatic pulmonary valve insufficiency; K59.00 Constipation, unspecified; J44.9 Chronic obstructive pulmonary disease, unspecified; Z66 Do not resuscitate; D69.6 Thrombocytopenia, unspecified; B96.5 Pseudomonas (aeruginosa) (mallei) (pseudomallei) as the cause of diseases classified elsewhere; I95.9 Hypotension, unspecified; K21.9 Gastro-esophageal reflux disease without esophagitis; F32.9 Major depressive disorder, single episode, unspecified; I42.9 Cardiomyopathy, unspecified; E88.09 Other disorders of plasma-protein metabolism, not elsewhere classified
CPT/HCPCS: 0099U; 36415; 36556; 36600; 71045; 76770; 80053; 80069; 80076; 81001; 82330; 82533; 82550; 82803; 82947; 83605; 83735; 83880; 83930; 84100; 84132; 84145; 84443; 84484; 84550; 85014; 85018; 85025; 87040; 87070; 87077; 87086; 87186; 87205; 93005; 93010; 93308; 93321; 93925; 93970; 94760; 96365; 96366; 96367; 96375; 97110; 97116; 97162; 97166; 97530; 97535; 99285-25; A9270; A9270-GY; C1751; C9113; J0610; J1815; J1940; J2543; J3370; J3475; J3480; J7050; J7060; J7070; P9041; U0002

== ENCOUNTER 2019-12-28 14:55 | Inpatient (IN) | payer OTHER ==
[~2019-12-28] VITALS: Ht 162.6 cm; Wt 62.0 kg
[~2019-12-28 14:55] MED LIST changes: +AMOX875 PO; +BISA10S PR; +CORTISONE60 GM TOP; +Fleet Glycerin1 EACH PR; +Florastor250 MG PO; +Milk Of Ma400 MG/5 M PO; +ONDA4 PO
[2019-12-28 17:00] LABS: BASOPHILS ABSOLUTE AUTO 0.06 K/mm3 (0.00-0.23); BASOPHILS PERCENT AUTO 1 % (0-2); EOSINOPHILS PERCENT AUTO 0 % (0-6); Hematocrit 52.3 % (33.0-51.0); Hemoglobin 16.3 g/dL (11.5-16.0); IMMATURE GRAN ABSOLUTE AUTO 0.12 K/mm3 (0.00-0.10); IMMATURE GRAN PERCENT AUTO 1 % (0-1); LYMPHOCYTES PERCENT AUTO 15 % (21-46); MONOCYTES ABSOLUTE AUTO 0.67 K/mm3 (0.16-1.47); MONOCYTES PERCENT AUTO 6 % (4-13); Mean Corpuscular HGB 29.7 pg (26.0-34.0); Mean Corpuscular HGB Conc 31.2 g/dL (31.5-36.5); Mean Corpuscular Volume 95 fL (80-100); Mean Platelet Volume 10.3 fL (9.1-12.4); NEUTROPHILS ABSOLUTE AUTO 9.49 K/mm3 (1.96-9.15); NEUTROPHILS PERCENT AUTO 78 % (41-73); Platelet Count 355 K/mm3 (150-400); RDW Coefficient Variation 17.1 % (11.7-14.2); RDW Standard Deviation 60.5 fL (35.1-46.3); Red Blood Cell Count 5.49 M/mm3 (3.80-5.20); White Blood Cell Count 12.14 K/mm3 (4.00-11.30)
[2019-12-28] MEDS ORDERED: Bumetanide2 MG PO (17:00)
[2019-12-28] MEDS ORDERED: Klor-Con 1010 MEQ PO (17:01)
[2019-12-28] MEDS ORDERED: ENTRESTO 24 MG1 EACH PO (17:01)
[2019-12-28] MEDS ORDERED: SPIR25 PO (17:03)
[2019-12-28] MEDS ORDERED: METO25 PO (17:03)
[2019-12-28] MEDS ORDERED: ALEN70 PO (17:05)
[2019-12-28] MEDS ORDERED: ALBU90OI INH (17:06)
[2019-12-28 17:22] LABS: Alanine Aminotransfer (ALT/SGP 38 U/L (12-78); Albumin, Blood 2.5 g/dL (3.4-5.0); Albumin/Globulin Ratio 0.7 (0.8-1.8); Alk Phos 199 U/L (50-136); Anion Gap 23 mmol/L (6-16); Aspartate Aminotrans (AST/SGOT 74 U/L (12-37); Bilirubin, Total 1.7 mg/dL (0.1-1.0); Blood Urea Nitrogen 47 mg/dL (8-24); Bun/Creatinine Ratio 15.5 (12.0-20.0); CO2, Blood 12 mmol/L (21-32); Calcium, Blood 7.5 mg/dL (8.5-10.1); Chloride, Blood 94 mmol/L (98-108); Creatinine, Blood 3.03 mg/dL (0.40-1.00); Globulin, Blood 3.5 g/dL (2.2-4.0); Glomerular Filtration Rate 16 (60-); Glucose, Blood 101 mg/dL (70-99); Sodium, Blood 129 mmol/L (136-145); Troponin I <0.015 ng/mL (0.000-0.040)
[2019-12-28] MEDS ORDERED: PANT40 PO (17:56)
[2019-12-28] MEDS ORDERED: BUPROPION XL150 M1 PO (17:56)
[2019-12-28] MEDS ORDERED: ROPI1 PO (18:00)
[2019-12-28] MEDS ORDERED: Travatan Z5 ML BOTHEYES (18:00)
[2019-12-28] MEDS ORDERED: ERGO400 PO (18:05)
[2019-12-28] MEDS ORDERED: PRESERVISION A1 EACH PO (18:06)
[2019-12-28] MEDS ORDERED: XARELTO15 MG PO (18:07)
[2019-12-28] MEDS ORDERED: TRAM50 PO (18:08)
[2019-12-28] MEDS ORDERED: FISH OIL 1,2001 EAC7 PO (18:09)
[2019-12-28 20:31] LABS: Source, Urine Catheter
[2019-12-28 20:36] LABS: Bilirubin, Urine Neg (Neg); Blood, Urine 2+ (Neg); Glucose Qualitative, Urine Neg (Neg); Ketones, Urine 1+ (Neg); Leukocyte Esterase, Urine Neg (Neg); Nitrite, Urine Neg (Neg); Protein, Urine 1+ (Neg); Urobilinogen, Urine NORM (Normal)
[2019-12-28 20:40] LABS: International Normalized Ratio 1.42; Prothrombin Time Results 14.9 Sec (9.7-11.5)
[2019-12-28 20:42] LABS: Appearance, Urine Hazy (Clear); Color, Urine Yellow (P-Yellow)
[2019-12-28 20:43] LABS: Amorphous Mod (0-Heavy); Bacteria Few /hpf; Mucus Light (0-Heavy); Red Blood Cells, Urine 0-2 /hpf (0-2); Squamous Epithelial Cells Few /hpf (Few); White Blood Cells, Urine Rare /hpf (0-5)
--- NOTE | 2019-12-28 21:26 | NUR ---
ADMIT ASSESSMENT PT ARRIVED SHORTLY PRIOR TO THIS RN'S SHIFT STARTING. REPORT RECIEVED FROM OFF GOING RN VARSHA. DAY SHIFT RN PLACED A POWER GLIDE TO RIGHT UPPER ARM. PT TOLERATED THIS WELL. THIS RN WAS ABLE TO COLLECT ADMIT HISTORY FROM PT. 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 PT IS SLOW TO RESPOND TO QUESTIONS AT TIMES AND IRRITABLE WITH SOME OF HER CARE. SHE IS VERY PARTICULAR ABOUT HER LEGS AND STATES SHE WANTS THEM TO REMAIN OPEN TO AIR T/O SHIFT. PICTURES WERE TAKEN OF HER LEGS AND PLACED IN CHART. PT ALSO HAS A SMALL OPEN WOUND TO HER COCCYX AND WANTS THIS TO ALSO REMAIN OPEN AT THIS TIME. WILL ATTEMPT TO PLACE DRESSINGS LATER WHEN PT IS MORE COOPERATIVE. VITALS ARE STABLE SHE HAS A LOW BP. PT HAS NS RUNNING AT 500 TILL THIS LITER OF NS FINISHES THEN FLUIDS WILL BE DECREASED TO 150ML/HR FOR TWO LITERS. CALLED DR CENTENO TO CONFIRM PT DNR STATUS WELL PLACING A MCKEON CATH PER PT'S REQUEST. MCKEON TEMP PROBE WAS PLACED BY THIS RN WITH NO ISSUES. PT TOLERATED WELL. PICTURES OF LEGS AND BUTTOCKS WERE TAKEN FOR CHART. PT WAS TURNED AND A NEW ATTENDS PUT IN PLACE. SHE DOES HAVE BLEEDING FROM EITHER HER VAGINA OR HER RECTUM. IT IS HARD TO TELL EXACTLY WHERE IT IS COMING FROM AT THIS TIME. JUST A SMEAR OF BLOOD THAT IS BRIGHT RED. CALL LIGHT IN REACH BED IN LOW POSITION. PT'S ROOM MATE CALLED AND STATES SHE WILL BRING IN HER HOME MEDS AND OTHER NEEDED ITEMS. WILL CON'T TO MONITOR AND KEEP PT SAFE.
[2019-12-29 00:46] LABS: Adenovirus F 40/41 Not Detected (NOT DETECT); Astrovirus Not Detected (NOT DETECT); Campylobacter Sp Not Detected (NOT DETECT); Cryptosporidium Not Detected (NOT DETECT); Cyclospora Cayetanensis Not Detected (NOT DETECT); E. Coli O157 Not Detected (NOT DETECT); Entamoeba Histolytica Not Detected (NOT DETECT); Enteroaggregative E. coli-EAEC Not Detected (NOT DETECT); Enteropathogenic E. coli-EPEC Not Detected (NOT DETECT); Enterotoxigenic E. coli-ETEC Not Detected (NOT DETECT); Giardia Lamblia Not Detected (NOT DETECT); Norovirus GI/GII Not Detected (NOT DETECT); Plesiomonas Shigelloides Not Detected (NOT DETECT); Rotavirus A Not Detected (NOT DETECT); Salmonella Sp Not Detected (NOT DETECT); Sapovirus Not Detected (NOT DETECT); Shiga Toxin-prod E. coli-STEC Not Detected (NOT DETECT); Shigella/Enteroin E. coli-EIEC Not Detected (NOT DETECT); Vibrio Cholerae Not Detected (NOT DETECT); Vibrio Sp Not Detected (NOT DETECT); Yersinia Enterocolitica Not Detected (NOT DETECT)
[2019-12-29 04:18] LABS: Hematocrit 44.2 % (33.0-51.0); Hemoglobin 14.6 g/dL (11.5-16.0); Mean Corpuscular HGB 30.5 pg (26.0-34.0); Mean Corpuscular Volume 93 fL (80-100); Mean Platelet Volume 10.1 fL (9.1-12.4); Platelet Count 364 K/mm3 (150-400); RDW Coefficient Variation 17.2 % (11.7-14.2); RDW Standard Deviation 58.9 fL (35.1-46.3); Red Blood Cell Count 4.78 M/mm3 (3.80-5.20); White Blood Cell Count 9.59 K/mm3 (4.00-11.30)
[2019-12-29 04:43] LABS: Albumin, Blood 1.8 g/dL (3.4-5.0); Albumin/Globulin Ratio 0.5 (0.8-1.8); Bilirubin, Total 1.2 mg/dL (0.1-1.0); Bun/Creatinine Ratio 18.9 (12.0-20.0); Calcium, Blood 6.9 mg/dL (8.5-10.1); Creatinine, Blood 2.43 mg/dL (0.40-1.00); Globulin, Blood 3.3 g/dL (2.2-4.0); Potassium, Blood 4.1 mmol/L (3.5-5.5); Total Protein, Blood 5.1 g/dL (6.4-8.2)
[2019-12-29 05:26] LABS: BAND PERCENT MAN 42 % (0-8); BASOPHILS PERCENT MAN 0 % (0-2); EOSINOPHILS PERCENT MAN 0 % (0-6); LYMPHOCYTES ABSOLUTE MAN 0.67 K/mm3 (0.84-5.20); LYMPHOCYTES PERCENT MAN 7 % (21-46); MONOCYTES ABSOLUTE MAN 0.95 K/mm3 (0.16-1.47); MONOCYTES PERCENT MAN 10 % (4-13); NEUTROPHILS ABSOLUTE MAN 7.95 K/mm3 (1.96-9.15); SEG NEUTROPHILS PERCENT MAN 41 % (41-73); TOTAL CELLS COUNTED 100
--- NOTE | 2019-12-29 05:44 | NUR ---
SHIFT SUMMARY PT HAS BEEN COOPERATIVE AND PLESANT T/O SHIFT. SHE HAS NO CHANGES FROM BASELINE. HER STOOL IS LIQUID BUT THERE IS NO REDNESS TO STOOL. PT CON'T TO BE INCONTINENT IN HER ATTENDS AND THEN CALLS TO USE THE BSC. PT IS ABLE TO STAND UNDER HER OWN POWER WITH JUST STANDBY ASSIST. VITALS ARE STABLE. SHE DOES HAVE A SOFT LOWER BP THIS SHIFT. HER HRR UNTIL SHE STANDS AND MOVES ABOUT. DENIES CHEST PAIN T/O SHIFT. STATES AGAIN THIS AM HER ONLY PAIN IS TO HER LEGS. SHE CON'T TO WANT NO DRESSINGS PLACED. THIS RN CON'T TO CHANGE DRY FLOWS UNDER HER LEGS AND HER TOP SHEETS TO KEEP EVERYTHING CLEAN. PT HAS CALL LIGHT IN REACH AND STATES SHE IS GOING TO REST MORE. WILL CON'T TO MONITOR AND KEEP PT SAFE TILL REPORT TO ONCOMING RN.
--- NOTE | 2019-12-29 10:19 | NUR ---
0830-ASSUMED CARE OF PATIENT. REPORT RECEIVED FROM SOREN RANKIN. PT IS ALERT AND ORIENTED. PT COMPLAINTS OF PAIN. PT WAS RECENTLY MEDICATED FOR PAIN. 0845-PT WAS ASSISTED TO THE BEDSIDE COMMODE. 1015-ASSISTED PATIENT BACK TO BED. PERICARE AND SKIN CARE DONE. PLACED A RECTAL TUBE SINCE PT IS HAVING LIQUID WATERY STOOL. SKIN INTEGRITY TO BUTTOCKS IS RED AND SMALL ULCER NOTED. PT'S BLOOD PRESSURE IS BETWEEN TO 70s-90s SYSTOLIC. 1027-SHAUN SHAH WITH PALLIATIVE CARE AT BEDSIDE TALKING TO PATIENT AT THIS TIME.
--- NOTE | 2019-12-29 11:24 | NUR ---
Spoke with ICU aerobics teacher Caro prior to Pt visit and discussed case. Caro reports Pt may benefit from discussion regarding goals of care. Joint Pt visit with Caremanager Gomez and this RN. Pt lethargic and struggles with conversation. Pt continues to close her eyes and appeard to drift of to sleep. During moments that Pt was willing to engage in conversaiton she reported having issues at home with her room mate. Briefly discussed option for hospice with Pt reporting no interest. Asked Pt if this RN could contact room mate who is listed as NOK with Pt denying need at this time. Pt requests for Patricia and this RN to visit at a later time so she can rest. Palliative Care will remain available.
--- NOTE | 2019-12-29 14:06 | NUR ---
CALLED DR. CENTENO TO DISCUSS PLAN OF CARE. HE STATED HE WANTED TO GIVE PATIENT HER METOPROLOL DESPITE PT'S BLOOD PRESSURE DUE TO PATIENT'S HEART RATE. IT IS SOMEWHAT DIFFICULT TO TAKE PT'S BLOOD PRESSURE SINCE THIS IS POSITIONAL. MAP NOTED ANYWHERE FROM 60s-77s EVEN IF SYSTOLIC BP IS IS IN THE 70s
--- NOTE | 2019-12-29 14:33 | NUR ---
Spiritual care visit conducted. Patient is sitting up in bed and alert. Patient explains about her medical issues and the plan for care. Patient talks about her struggle to understand why terrible things happen to good people, She then shares at length about the tension in her home with her room mate and the places she feels a lack care. I listen empathically, talk about areas where forgiveness may be possible, normalize patient's experience, reinforce helpful attitudes and practices and provide pastoral care and prayer. Patient responds well and shows signs of catharsis and restored esther. I will continue to help patient work through how her medical issues affect the spiritual and emotional aspects of her life and work with her on areas of forgiveness.
--- NOTE | 2019-12-29 17:45 | NUR ---
PT SEEN BY DR. ENAMORADO AND DR. CENTENO. PT WILL RECEIVED 500C BOLUS AND THEN MAINTENANCE FLUID WILL BE INCREASED TO 200ML/HR.
--- NOTE | 2019-12-29 18:06 | NUR ---
CALLED DR. ENAMORADO FOR CLARIFICATION ORDERSE. PT HAD TO NEGATIVE RAPID COVID TESTS WITHIN 2 WEEKS. THIS ORDER WAS CANCELLED PER DR. ENAMORADO.
--- NOTE | 2019-12-29 18:07 | NUR ---
PT IS AWAKE AND ALERT ALL THROUGHOUT THE DAY. BLOOD PRESSURE WITHIN THE 70s-90s. CELLULITIS TO BILATERAL LEGS ARE STILL PRESENT THESE ARE NOW COVERED WITH DRESSING. PT HAS BEEN AFEBRILE THE ENTIRE DAY.
--- NOTE | 2019-12-29 22:39 | NUR ---
RERCTAL TUBE TUBE REPOSITIONED @ 9213.
[2019-12-30 04:26] LABS: Hematocrit 36.6 % (33.0-51.0); Hemoglobin 12.1 g/dL (11.5-16.0); Mean Corpuscular HGB 30.4 pg (26.0-34.0); Mean Corpuscular HGB Conc 33.1 g/dL (31.5-36.5); Mean Corpuscular Volume 92 fL (80-100); Mean Platelet Volume 10.1 fL (9.1-12.4); Platelet Count 281 K/mm3 (150-400); RDW Coefficient Variation 17.2 % (11.7-14.2); RDW Standard Deviation 58.4 fL (35.1-46.3); Red Blood Cell Count 3.98 M/mm3 (3.80-5.20); White Blood Cell Count 7.92 K/mm3 (4.00-11.30)
[2019-12-30 04:51] LABS: Bun/Creatinine Ratio 23.1 (12.0-20.0); Calcium, Blood 6.5 mg/dL (8.5-10.1); Creatinine, Blood 1.47 mg/dL (0.40-1.00); Potassium, Blood 3.1 mmol/L (3.5-5.5)
--- NOTE | 2019-12-30 05:00 | NUR ---
END OF SHIFT SUMMARY NO ACUTE CHANGES THIS SHIFT. PT AXO BUT GROGGY WITH WAKING UP. BP REMAINS 80'S-90 SYSTOLIC. PT ASYMPTOMATIC. PT REMAINS IN AFIB 110'S. REMAINS ON RA. RECTAL TUBE IN PLACE, WITH DARK BROWN LIQUID BM. MCKEON PATENT AND DRAINING YELLOW URINE. MEPILEX APPLIED TO SACRUM PROPHYLACTICALLY. WOUND DRESSINGS TO BILAT LE'S CDI. POWERGLIDE PATENT AND DRAWS BLOOD. PT BEING REPOSITIONED BY STAFF. WILL CONTINUE TO MONITOR UNTIL SHIFT CHANGE.
[2019-12-30 05:28] LABS: BAND PERCENT MAN 44 % (0-8); BASOPHILS PERCENT MAN 0 % (0-2); EOSINOPHILS PERCENT MAN 0 % (0-6); LYMPHOCYTES ABSOLUTE MAN 0.23 K/mm3 (0.84-5.20); LYMPHOCYTES PERCENT MAN 3 % (21-46); MONOCYTES ABSOLUTE MAN 0.23 K/mm3 (0.16-1.47); MONOCYTES PERCENT MAN 3 % (4-13); NEUTROPHILS ABSOLUTE MAN 7.44 K/mm3 (1.96-9.15); SEG NEUTROPHILS PERCENT MAN 50 % (41-73); TOTAL CELLS COUNTED 100
--- NOTE | 2019-12-30 07:58 | NUR ---
DR CENTENO: PROVIDER AT BEDSIDE TO EVAL PT. STS SHE IS OKAY TO TRANSFER TO PCU STATUS. HE IS NOT CONCERNED W/ PT's CURRENT HYPOTENSION SHE HAS BEEN PERFUSING WELL & MANUAL BP READINGS ARE IMPROVED. STS TO GIVE AM DOSE OF METOPROLOL UNLESS SBP < 80, PARAMETERS ADDED TO EMAR.
--- NOTE | 2019-12-30 08:00 | NUR ---
ASSUMED CARE: REPORT RECEIVED FROM LEONCIO Acevedo RN. ASSUMED CARE OF THIS PT AT APPROX 0700. ON ASSESSMENT, THE PT IS RESTING QUIETLY. SHE AWAKENS & IS SOFTLY CALLING OUT FOR THE NURSE, BUT DOES NOT USE CALL LIGHT. SHE IS NOT IMPULSIVE & DOES NOT ATTEMPT TO GET OOB. AT THAT TIME SHE IS SAYING NONSENSICAL PHRASES & STS FEELING CONFUSED. SHE REDIRECTS WELL SHE WAKES UP MORE & IS NOW ALERT/ORIENTED. WOUNDS TO BLE WERE REDRESSED BY LEARNING COACH BUT HAVE A SMALL AMNT OF DRAINAGE NOTED TO DRESSINGS & WILL NEED TO BE CHANGED AGAIN THIS SHIFT. WILL CONTINUE TO MONITOR & UPDATE NEEDED.
--- NOTE | 2019-12-30 10:43 | NUR ---
TRANSFER TO PCU: REPORT GIVEN TO GELACIO López RN TO ASSUME CARE. PT TX TO ROOM PCU-16 AT APPROX 1035 BY KAVIN SANTIAGO. BP CHECKED PRIOR TO TRANSFER REMAINS STABLE AFTER AM METOPROLOL DOSE. CHART, MEDS & ALL BELONGINGS HAVE BEEN TRANSFERRED W/ PT.
--- NOTE | 2019-12-30 18:13 | NUR ---
PCU DAYSHIFT SUMMARY PATIENT ARRIVED TO PCU 16 FROM ICU 3 - PATIENT ALERT AND ORIENTED TO SELF AND LOCATION, CONFUSED TO SITUATION AND TIME/DATE. PATIENT DENIES ANY PAIN T/O SHIFT IN PCU. RESP E/U ON ROOM AIR. PATIENT REMAINS IN AFIB IN THE 90-110'S. BLOOD PRESSURES STABLE. PATIENTS BLE ELEVATED DUE TO BLE EDEMA - UNNA BOOTS INPLACE. FRAGILE SKIN NOTED. NO ACUTE CHANGES NOTED T/O SHIFT. FEXISEAL IN PLACE DRAINING LIQUID STOOL AND MCKEON CATH IN PLACE DRAINING DARK YELLOW URINE. WILL CONTINUE TO MONITOR AND REPORT TO NOC SHIFT RN.
--- NOTE | 2019-12-30 21:00 | NUR ---
POSSIBLE BLOOD IN STOOL PT ASSISTED TO BEDPAN FOR FREQUENT DIARRHEA. PT APPEARS TO HAVE POSSIBLE BLOOD IN STOOL. NOTIFIED PHYSICIAN. GUIAC SAMPLE ORDERED. SPECIMEN OBTAINED AND SENT TO LAB.
[2019-12-31 05:49] LABS: BASOPHILS ABSOLUTE AUTO 0.07 K/mm3 (0.00-0.23); BASOPHILS PERCENT AUTO 1 % (0-2); Hematocrit 39.2 % (33.0-51.0); Hemoglobin 12.5 g/dL (11.5-16.0); LYMPHOCYTES ABSOLUTE AUTO 1.34 K/mm3 (0.84-5.20); LYMPHOCYTES PERCENT AUTO 12 % (21-46); MONOCYTES ABSOLUTE AUTO 0.43 K/mm3 (0.16-1.47); MONOCYTES PERCENT AUTO 4 % (4-13); Mean Corpuscular HGB Conc 31.9 g/dL (31.5-36.5); Mean Corpuscular Volume 94 fL (80-100); Mean Platelet Volume 10.5 fL (9.1-12.4); Platelet Count 310 K/mm3 (150-400); RDW Standard Deviation 61.9 fL (35.1-46.3); Red Blood Cell Count 4.17 M/mm3 (3.80-5.20); White Blood Cell Count 10.95 K/mm3 (4.00-11.30)
[2019-12-31 06:03] LABS: EOSINOPHILS ABSOLUTE AUTO 0.14 K/mm3 (0.00-0.68); EOSINOPHILS PERCENT AUTO 1 % (0-6); IMMATURE GRAN ABSOLUTE AUTO 0.05 K/mm3 (0.00-0.10); IMMATURE GRAN PERCENT AUTO 1 % (0-1); NEUTROPHILS ABSOLUTE AUTO 8.92 K/mm3 (1.96-9.15); NEUTROPHILS PERCENT AUTO 82 % (41-73)
[2019-12-31 06:08] LABS: Anion Gap 10 mmol/L (6-16); Blood Urea Nitrogen 21 mg/dL (8-24); CO2, Blood 16 mmol/L (21-32); Chloride, Blood 113 mmol/L (98-108); Creatinine, Blood 0.95 mg/dL (0.40-1.00); Glomerular Filtration Rate >60 (60-); Glucose, Blood 65 mg/dL (70-99); Potassium, Blood 3.6 mmol/L (3.5-5.5); Sodium, Blood 139 mmol/L (136-145)
[2019-12-31 06:13] LABS: BAND PERCENT MAN 22 % (0-8); BASOPHILS PERCENT MAN 0 % (0-2); EOSINOPHILS ABSOLUTE MAN 0.43 K/mm3 (0.00-0.68); EOSINOPHILS PERCENT MAN 4 % (0-6); LYMPHOCYTES ABSOLUTE MAN 1.31 K/mm3 (0.84-5.20); LYMPHOCYTES PERCENT MAN 12 % (21-46); MONOCYTES ABSOLUTE MAN 0.21 K/mm3 (0.16-1.47); MONOCYTES PERCENT MAN 2 % (4-13); NEUTROPHILS ABSOLUTE MAN 8.97 K/mm3 (1.96-9.15); SEG NEUTROPHILS PERCENT MAN 60 % (41-73); TOTAL CELLS COUNTED 100
--- NOTE | 2019-12-31 06:30 | NUR ---
SHIFT SUMMARY PT ALERT AND ORIENTED. PT WEAK, UNABLE TO AMBULATE TO COMMODE. PT USED BED IRWIN NEEDED. PT ABLE TO REPOSITION SELF IN BED NEEDED. DRESSINGS CHANGED ON BLE NEEDED D/T WOUND DRAINAGE. MEPLEX ON COCCYX D/T SACRAL WOUND. PT REPORTS NO CHEST PAIN OR PRESSURE. PT HYPOTENSIVE WITH SYSTOLIC BP IN THE 90'S. HR IN THE LOW 100'S. WILL CONTINUE TO MONITOR UNTIL REPORT GIVEN TO DAYSHIFT RN.
[2019-12-31 13:57] LABS: Stool Occult Blood Guaiac 1 Pos (Neg)
--- NOTE | 2019-12-31 18:31 | NUR ---
PCU DAYSHIFT SUMMARY PATIENT ALERT AND ORIENTED TO SELF AND LOCATION. CONFUSED TO TIME/DATE. RESP E/U ON ROOM AIR AND VSS. PATIENT DENIES ANY PAIN AT REST - REPORTS PAIN WITH MOVEMENTS. BLE WEEPING EDEMA AND WOUNDS. HEART RATE REMAINS IN AFIB T/O SHIFT. FLUIDS VIA IV DECREASED. PATIENT TOLERATED WELL. NO ACUTE CHANGES T/O SHIFT. SITS ON SIDE OF BED FOR MEALS, TOLERATES WELL. CONTINUES TO HAVE LOOSE STOOLS - MEDICATIONS GIVEN PRN PER EMAR. CALL LIGHT W/I REACH. WILL CONTINUE TO MONITOR AND REPORT TO NOC SHIFT RN.
[2020-01-01 04:22] LABS: Hematocrit 39.4 % (33.0-51.0); Hemoglobin 12.6 g/dL (11.5-16.0); Mean Corpuscular HGB 30.2 pg (26.0-34.0); Mean Corpuscular Volume 95 fL (80-100); Mean Platelet Volume 10.4 fL (9.1-12.4); Platelet Count 279 K/mm3 (150-400); RDW Coefficient Variation 18.1 % (11.7-14.2); RDW Standard Deviation 62.4 fL (35.1-46.3); Red Blood Cell Count 4.17 M/mm3 (3.80-5.20); White Blood Cell Count 10.57 K/mm3 (4.00-11.30)
[2020-01-01 04:40] LABS: Anion Gap 9 mmol/L (6-16); Blood Urea Nitrogen 17 mg/dL (8-24); Bun/Creatinine Ratio 19.9 (12.0-20.0); CO2, Blood 16 mmol/L (21-32); Calcium, Blood 7.1 mg/dL (8.5-10.1); Chloride, Blood 113 mmol/L (98-108); Creatinine, Blood 0.86 mg/dL (0.40-1.00); Glomerular Filtration Rate >60 (60-); Glucose, Blood 69 mg/dL (70-99); Potassium, Blood 3.8 mmol/L (3.5-5.5); Sodium, Blood 138 mmol/L (136-145)
[2020-01-01 05:56] LABS: BAND PERCENT MAN 14 % (0-8); BASOPHILS PERCENT MAN 0 % (0-2); EOSINOPHILS ABSOLUTE MAN 0.21 K/mm3 (0.00-0.68); EOSINOPHILS PERCENT MAN 2 % (0-6); LYMPHOCYTES ABSOLUTE MAN 1.37 K/mm3 (0.84-5.20); LYMPHOCYTES PERCENT MAN 13 % (21-46); MONOCYTES ABSOLUTE MAN 0.52 K/mm3 (0.16-1.47); MONOCYTES PERCENT MAN 5 % (4-13); NEUTROPHILS ABSOLUTE MAN 8.45 K/mm3 (1.96-9.15); SEG NEUTROPHILS PERCENT MAN 66 % (41-73); TOTAL CELLS COUNTED 100
--- NOTE | 2020-01-01 06:50 | NUR ---
SHIFT SUMMARY PT ALERT AND ORIENTED. VS STABLE. PT REPORTS NO CHEST PAIN OR PRESSURE. PT TURNED Q 2 HOURS OR NEEDED FOR PAIN RELIEF. WOUNDS OPEN TO AIR. MEPLEX ON COCCYX D/T REDNESS. MEPLEX ON ELBOW D/T RED/SORE AREA. HEELS FLOATED. WILL CONTINUE TO MONITOR UNTIL REPORT GIVEN TO DAYSHIFT RN.
--- NOTE | 2020-01-01 15:45 | NUR ---
Spiritual care visit conducted. Patient talks about her appreciation for the doctors who have been working to help her find the right antibiotic and helping her manage the pain. Patient tells me about the new tensions that are mounting where she resides and about some aspects that are improving. I provide therapeutic listening and prayer. Patient responds well and shows signs of an elevated mood. I will continue to work with patient on forgiveness and setting safe boundaries.
--- NOTE | 2020-01-01 18:33 | NUR ---
SHIFT SUMMARY; A/A/OX4 DURING SHIFT. STATUS CHANGED TO MEDICAL TODAY, SNIFF PLACEMENT RECOMMENDED TO PT WHO REFUSES. PT WORKED WITH PT TODAY, DIFFICULTY WITH STANDING AND UNABLE TO AMBULATE WITH WALKER. LOWER EXTREMETIES RED, WARM WITH DELAYED CAP REFILL. LARGE OPEN WOUNDS BILATERALLY TO FEET AND ANKLES, LEFT OPEN TO AIR PER DOCTOR. WEAPING CLEAR-YELLOW FLUID BILATERALLY TO LEGS. LEFT KNEE HALF DOLLAR SIZED BLACK CIRCULAR ULCER WITH REDNESS AROUND IT, DRY AND OPEN TO AIR. BRUISING BILATERALLY TO ARMS. POWER GLIDE IN PLACE TO AYESHA, SALINE LOCKED. BILATERAL PEDAL PULSES PALPABLE BUT FAINT. MCKEON IN PLACE DRAINING CLEAR YELLOW URINE. WILL CONTINUE TO MONITOR AND TREAT UNTIL CHANGE OF SHIFT.
--- NOTE | 2020-01-02 06:03 | NUR ---
SHIFT SUMMARY PT SLEPT T/O SHIFT. PT REPORTS INCREASE IN PAIN IN BLE. REPOSITIONING AND MEDICATIONS GIVEN PER EMAR. PT REPORTS NO CHEST PAIN OR PRESSURE T/O SHIFT. VS STABLE. WILL CONTINUE TO MONITOR UNTIL REPORT GIVEN TO DAYSHIFT RN.
[2020-01-02 06:11] LABS: BASOPHILS ABSOLUTE AUTO 0.09 K/mm3 (0.00-0.23); BASOPHILS PERCENT AUTO 1 % (0-2); EOSINOPHILS ABSOLUTE AUTO 0.25 K/mm3 (0.00-0.68); EOSINOPHILS PERCENT AUTO 3 % (0-6); Hematocrit 41.6 % (33.0-51.0); Hemoglobin 13.3 g/dL (11.5-16.0); IMMATURE GRAN ABSOLUTE AUTO 0.16 K/mm3 (0.00-0.10); IMMATURE GRAN PERCENT AUTO 2 % (0-1); LYMPHOCYTES ABSOLUTE AUTO 1.73 K/mm3 (0.84-5.20); LYMPHOCYTES PERCENT AUTO 17 % (21-46); MONOCYTES PERCENT AUTO 9 % (4-13); Mean Corpuscular HGB 30.2 pg (26.0-34.0); Mean Corpuscular Volume 95 fL (80-100); Mean Platelet Volume 10.4 fL (9.1-12.4); NEUTROPHILS ABSOLUTE AUTO 7.02 K/mm3 (1.96-9.15); NEUTROPHILS PERCENT AUTO 69 % (41-73); Platelet Count 235 K/mm3 (150-400); RDW Coefficient Variation 18.1 % (11.7-14.2); RDW Standard Deviation 62.3 fL (35.1-46.3); White Blood Cell Count 10.15 K/mm3 (4.00-11.30)
--- NOTE | 2020-01-02 06:15 | NUR ---
VOMITING PT BEGAN VOMITING GREEN EMESIS. ZOFRAN GIVEN PER PHYSICIAN ORDER.
[2020-01-02 06:29] LABS: Anion Gap 8 mmol/L (6-16); Blood Urea Nitrogen 15 mg/dL (8-24); Bun/Creatinine Ratio 19.5 (12.0-20.0); CO2, Blood 15 mmol/L (21-32); Calcium, Blood 7.5 mg/dL (8.5-10.1); Chloride, Blood 114 mmol/L (98-108); Creatinine, Blood 0.77 mg/dL (0.40-1.00); Glomerular Filtration Rate >60 (60-); Glucose, Blood 59 mg/dL (70-99); Sodium, Blood 137 mmol/L (136-145)
--- NOTE | 2020-01-02 09:40 | NUR ---
PT ASSESSMENT IS LIMITED PT SHOUTING AT STAFF TO LEAVE "GO AWAY, DON'T TOUCH ME" REFUSING TO TAKE MEDICATIONS INITIALLY BUT DID END UP TAKING HER MEDICATIONS. PT DOES DEMAND THAT STAFF LEAVE AND NOT TOUCH HER
--- NOTE | 2020-01-02 19:36 | NUR ---
SHIFT SUMMARY PT IS A PCU TRANSFER THIS AFTERNOON. MEDICATED FOR PAIN X1 WITH TRAMADOL. PT HAS A GOOD APPETITE. MCKEON PATENT AND DRAINING. DR. GRISSOM IN TO SEE PT THIS EVENING. NO NEED FOR SURGERY AT THIS TIME PER DR. GRISSOM. THIS RN TALKED WITH PT ABOUT GOING TO SNF AND NEEDING COVID TEST BUT PT DECLINED AND STATES SHE IS GOING HOME. THIS RN ASKED IF PT WOULD HAVE ASSISTANCE AT HOME AND SHE REPORTS SHE WILL. NO ACUTE CHANGES THIS SHIFT. REPORT GIVEN TO NOC RN. CALL LIGHT IN REACH..
--- NOTE | 2020-01-02 23:19 | NUR ---
ALERT AND ORIENTED. OPEN SORES OF BILAT LOWER LEGS OPEN TO AIR. PT REFUSED DRESSING CHANGES. CURRENTLY RESTING QUIETLY. CALL LIGHT IN REACH
--- NOTE | 2020-01-03 05:04 | NUR ---
SHIFT SUMMARY AWAKE AT INTERVALS. ASSISTED WITH BEDPAN, LINEN CHANGED ONCE. BILAT LOWER EXTREMITIES SORES CONTINUE TO SEEP SEROUS DRAINAGE. MCKEON DRAINING. HOB ELEVATED FOR COMFORT. CALL LIGHT IN REACH.
[2020-01-03 06:58] LABS: Anion Gap 6 mmol/L (6-16); Blood Urea Nitrogen 14 mg/dL (8-24); CO2, Blood 18 mmol/L (21-32); Calcium, Blood 7.6 mg/dL (8.5-10.1); Chloride, Blood 112 mmol/L (98-108); Creatinine, Blood 0.78 mg/dL (0.40-1.00); Glomerular Filtration Rate >60 (60-); Glucose, Blood 76 mg/dL (70-99); Potassium, Blood 4.5 mmol/L (3.5-5.5); Sodium, Blood 136 mmol/L (136-145)
[2020-01-03 07:10] LABS: BASOPHILS ABSOLUTE AUTO 0.06 K/mm3 (0.00-0.23); BASOPHILS PERCENT AUTO 1 % (0-2); EOSINOPHILS ABSOLUTE AUTO 0.21 K/mm3 (0.00-0.68); EOSINOPHILS PERCENT AUTO 2 % (0-6); Hematocrit 40.4 % (33.0-51.0); Hemoglobin 13.2 g/dL (11.5-16.0); IMMATURE GRAN ABSOLUTE AUTO 0.13 K/mm3 (0.00-0.10); IMMATURE GRAN PERCENT AUTO 1 % (0-1); LYMPHOCYTES ABSOLUTE AUTO 1.87 K/mm3 (0.84-5.20); LYMPHOCYTES PERCENT AUTO 20 % (21-46); MONOCYTES ABSOLUTE AUTO 1.03 K/mm3 (0.16-1.47); MONOCYTES PERCENT AUTO 11 % (4-13); Mean Corpuscular HGB 30.4 pg (26.0-34.0); Mean Corpuscular HGB Conc 32.7 g/dL (31.5-36.5); Mean Corpuscular Volume 93 fL (80-100); Mean Platelet Volume 10.7 fL (9.1-12.4); NEUTROPHILS ABSOLUTE AUTO 6.18 K/mm3 (1.96-9.15); NEUTROPHILS PERCENT AUTO 65 % (41-73); Platelet Count 234 K/mm3 (150-400); RDW Coefficient Variation 18.2 % (11.7-14.2); RDW Standard Deviation 62.3 fL (35.1-46.3); Red Blood Cell Count 4.34 M/mm3 (3.80-5.20); White Blood Cell Count 9.48 K/mm3 (4.00-11.30)
[2020-01-03] MEDS ORDERED: LACTASE FAS9000 UNI1 PO (11:54)
[2020-01-03] MEDS ORDERED: ACET325 PO (11:54)
[2020-01-03] MEDS ORDERED: LEVOFLOXACIN750 MG PO (11:54)
[2020-01-03] MEDS ORDERED: LOPERAMIDE1 MG/7.5 M PO (11:56)
[2020-01-03] MEDS ORDERED: SACC250C PO (11:56)
--- NOTE | 2020-01-03 15:50 | NUR ---
Spiritual care visit conducted. Patient immediately tells me about the events of the day. She talks about a 2 hour DC plan and then much business about rethinking a SNF and then having her hospital stay increased at least through the night. Patient tells me of the panic and fear of being discharged home and the struggle to get care at home before these medical issues. I listen empathically, provide anxiety containment and prayer. Patient responds well and states that she is more at peace. I will continue to remain available to patient and family.
--- NOTE | 2020-01-03 19:21 | NUR ---
SHIFT SUMMARY: NO ACUTE CHANGES TO REPORT THIS SHIFT. PT A&O; CALM AND COOEPRATIVE WITH CARE. MEDICATED FOR CHRONIC BACK PAIN PER [facility]. WOUNDS TO BLE; NO SURGICAL INTERVENTION NEEDED (DR GRISSOM). MCKEON ION PLACE; PATENT & DRAINING. PO ABX CONTINUING. AWAITING PLACEMENT.
--- NOTE | 2020-01-04 04:54 | NUR ---
SUMMARY NO NEW ISSUES NOTED. PT HAS RESTED COMFORTABLY T/O SHIFT. PT HAS BEEN PLESANT AND COOPERATIVE W/ CARE. PT LE'S HAVE BEEN KEPT CLEAN AND DRY. PT MCKEON DRAINING WELL. PT CURRENTLY SLEEPING AND IN NO DISTRESS. CALL LIGHT IN REACH.
[2020-01-04 06:57] LABS: BASOPHILS ABSOLUTE AUTO 0.08 K/mm3 (0.00-0.23); BASOPHILS PERCENT AUTO 1 % (0-2); EOSINOPHILS ABSOLUTE AUTO 0.32 K/mm3 (0.00-0.68); EOSINOPHILS PERCENT AUTO 3 % (0-6); Hematocrit 44.3 % (33.0-51.0); Hemoglobin 14.3 g/dL (11.5-16.0); IMMATURE GRAN ABSOLUTE AUTO 0.12 K/mm3 (0.00-0.10); IMMATURE GRAN PERCENT AUTO 1 % (0-1); LYMPHOCYTES ABSOLUTE AUTO 2.22 K/mm3 (0.84-5.20); LYMPHOCYTES PERCENT AUTO 23 % (21-46); MONOCYTES ABSOLUTE AUTO 0.97 K/mm3 (0.16-1.47); MONOCYTES PERCENT AUTO 10 % (4-13); Mean Corpuscular HGB 30.4 pg (26.0-34.0); Mean Corpuscular HGB Conc 32.3 g/dL (31.5-36.5); Mean Corpuscular Volume 94 fL (80-100); Mean Platelet Volume 9.8 fL (9.1-12.4); NEUTROPHILS ABSOLUTE AUTO 6.09 K/mm3 (1.96-9.15); NEUTROPHILS PERCENT AUTO 62 % (41-73); Platelet Count 233 K/mm3 (150-400); RDW Coefficient Variation 18.5 % (11.7-14.2); RDW Standard Deviation 62.9 fL (35.1-46.3); Red Blood Cell Count 4.71 M/mm3 (3.80-5.20)
[2020-01-04 07:19] LABS: Anion Gap 11 mmol/L (6-16); Blood Urea Nitrogen 13 mg/dL (8-24); Bun/Creatinine Ratio 15.6 (12.0-20.0); CO2, Blood 14 mmol/L (21-32); Calcium, Blood 7.7 mg/dL (8.5-10.1); Chloride, Blood 110 mmol/L (98-108); Creatinine, Blood 0.84 mg/dL (0.40-1.00); Glomerular Filtration Rate >60 (60-); Glucose, Blood 70 mg/dL (70-99); Potassium, Blood 4.2 mmol/L (3.5-5.5); Sodium, Blood 135 mmol/L (136-145)
--- NOTE | 2020-01-04 15:12 | NUR ---
REPORT CALLED TO [facility] NURSESHONDA.
--- NOTE | 2020-01-04 15:46 | NUR ---
PT DISCHARGED PT DISCHARGED AT 1545. BLE WOUNDS CLEANED. MEPILEX ON BUTTOCKS CHANGED. PT MEDICATED FOR PAIN PRIOR TO DC. REPORT CALLED TO [facility]. PT SENT WITH BELONGINGS. TRANSPORTED VIA WHEELCHAIR BY [facility].
== END 2020-01-04 15:46 | DRG 872 ==
LOC: ER 14:55 → MEDS 17:54 → ERHOLD 17:54 → ICUE 18:16 → PCU 12-30 10:47 → MEDS 01-02 13:12
PROVIDERS: Family Medicine; Hospitalist; Internal Medicine; Physician Assistant; ADMIT Hospitalist
PROC: 0D9P70Z Drainage of Rectum with Drainage Device, Via Natural or Artificial Opening (ICD-10-PCS; principal; 2019-12-29)
DX: A41.89 Other specified sepsis (principal); E87.1 Hypo-osmolality and hyponatremia; N17.9 Acute kidney failure, unspecified; I50.22 Chronic systolic (congestive) heart failure; E87.2 Acidosis; L03.116 Cellulitis of left lower limb; E44.0 Moderate protein-calorie malnutrition; I42.8 Other cardiomyopathies; Z20.828 Contact with and (suspected) exposure to other viral communicable diseases; R65.20 Severe sepsis without septic shock; I48.0 Paroxysmal atrial fibrillation; I95.9 Hypotension, unspecified; E86.0 Dehydration; J44.9 Chronic obstructive pulmonary disease, unspecified; N18.3 Chronic kidney disease, stage 3 (moderate); F32.9 Major depressive disorder, single episode, unspecified; R19.7 Diarrhea, unspecified; I87.2 Venous insufficiency (chronic) (peripheral); Z68.24 Body mass index [BMI] 24.0-24.9, adult; Z66 Do not resuscitate; M81.0 Age-related osteoporosis without current pathological fracture; K21.9 Gastro-esophageal reflux disease without esophagitis; I27.20 Pulmonary hypertension, unspecified; Z87.891 Personal history of nicotine dependence; Z79.83 Long term (current) use of bisphosphonates
CPT/HCPCS: 0097U; 36415; 71045; 80048; 80053; 81001; 82272; 83605; 83880; 84484; 85025; 85610; 85651; 85730; 87040; 87070; 87077; 87086; 87186; 87205; 93005; 93010; 94760; 96360; 97110; 97162; 97166; 97530; 97535; 99285-25; A9270; A9270-GY; C1751; J0610; J0692; J0696; J1644; J3370; J3480; J7030; U0002

== ENCOUNTER 2020-01-31 07:47 | Day surgery (SDC) | payer OTHER ==
[~2020-01-31] VITALS: Ht 162.6 cm; Wt 55.7 kg
[~2020-01-31 07:47] MED LIST changes: +ALBU90OI INH; +ALEN70 PO; +BUPROPION XL150 M1 PO; +Bumetanide2 MG PO; +ENTRESTO 24 MG1 EACH PO; +ERGO400 PO; +FISH OIL 1,2001 EAC7 PO; +Klor-Con 1010 MEQ PO; +LACTASE FAS9000 UNI1 PO; +LEVOFLOXACIN750 MG PO; +LOPERAMIDE1 MG/7.5 M PO; +METO25ER PO; +PANT40 PO; +PRESERVISION A1 EACH PO; +ROPI1 PO; +SACC250C PO; +SPIR25 PO; +TRAM50 PO; +Travatan Z5 ML BOTHEYES; +XARELTO15 MG PO
--- NOTE | 2020-01-31 09:18 | NUR ---
Ambulatory in Day Surgery History, Chart, Medications and Allergies reviewed before start of procedure. Lungs clear T/O to Auscultation. Lungs clear T/O to Auscultation. Patient confirms NPO status and agrees with scheduled surgery. Pre-Op teaching done. Pt verbalizes understanding. Patient States Post-Procedure ride home has been arranged.
--- NOTE | 2020-01-31 10:10 | NUR ---
PT'S PROCEDURE CANCELLED DUE TO UNSTABLE HR. AFIB WITH RVR.
--- NOTE | 2020-01-31 10:10 | NUR ---
EKG ORDERED BY DR. CHICA ZHENG, NOT DR. SHAUN ZHENG ACCIDENTALLY ORDERED IN [facility].
--- NOTE | 2020-01-31 10:24 | NUR ---
PRIOR TO DI/C PT SCHEDULED BY ORD.JIM FOR AN APPOINTMENT WITH DR. GONZALEZ FOR 02/02/20 AT 0945. PT GIVEN APPOITMENT INFORMATION AND STATES UNDERSTANDING. PT SUCCUSSFULLY D/C'D.
== END 2020-01-31 22:49 | disposition home or self-care (01) ==
LOC: ORSCMMR 07:47 → ORD 09:30 → ORSCMMR 22:49
DX: L97.90 Non-pressure chronic ulcer of unspecified part of unspecified lower leg (principal); Z53.9 Procedure and treatment not carried out, unspecified reason
CPT/HCPCS: 93005; 93010; J0690; J1885; J2704; J3010; J7120

== ENCOUNTER 2020-02-02 00:33 | Day surgery (SDC) | payer OTHER | END 2020-02-02 12:00 | disposition home or self-care (01) | LOC: WOUND 00:33 | DX: L97.812 Non-pressure chronic ulcer of other part of right lower leg with fat layer exposed (principal); L97.822 Non-pressure chronic ulcer of other part of left lower leg with fat layer exposed; L03.116 Cellulitis of left lower limb; L03.115 Cellulitis of right lower limb; I87.2 Venous insufficiency (chronic) (peripheral); I50.9 Heart failure, unspecified; Z79.899 Other long term (current) drug therapy ==

== ENCOUNTER 2020-02-05 12:48 | Day surgery (SDC) | payer OTHER ==
[~2020-02-05] VITALS: Ht 162.6 cm; Wt 54.5 kg
[2020-02-05] MEDS ORDERED: PANT20 PO (13:52)
--- NOTE | 2020-02-05 14:00 | NUR ---
ASSUMED CARE OF PATIENT. EKG DONE METOPROLOL 25 MG PO GIVEN BY GERALDINE DOTY PT ALERT AND ORIENTED EGM SHOWS SINUS TACHYCARDIA WITH PAROXYSMAL ATRIAL TACHYCARDIA RUNS THEN SINUS RHYTHM WITH PAC'S.
--- NOTE | 2020-02-05 14:30 | NUR ---
DISCHARGE INSTRUCTIONS GIVEN WITH VERBAL AND WRITTEN UNDERSTANDING. ENFORECE TO TAKE METOPROLOL DAILY STARTING TOMORROW.
--- NOTE | 2020-02-05 14:35 | NUR ---
IV REMOVED INTACT. 2X2,COBAN AND MANUAL APPLIED. DRESSED FOR DISCHARGE.
--- NOTE | 2020-02-05 14:51 | NUR ---
DISCHARGED HOME VIA WHEELCHAIR. [facility] TRANSPORTING.
== END 2020-02-05 22:45 | disposition home or self-care (01) ==
LOC: MHTC 12:48
DX: I48.0 Paroxysmal atrial fibrillation (principal); J44.9 Chronic obstructive pulmonary disease, unspecified; I48.3 Typical atrial flutter; I25.10 Atherosclerotic heart disease of native coronary artery without angina pectoris; I42.8 Other cardiomyopathies; K21.9 Gastro-esophageal reflux disease without esophagitis; F32.9 Major depressive disorder, single episode, unspecified; I50.20 Unspecified systolic (congestive) heart failure; Z87.891 Personal history of nicotine dependence; Z88.5 Allergy status to narcotic agent; Z88.8 Allergy status to other drugs, medicaments and biological substances; Z79.01 Long term (current) use of anticoagulants; Z79.899 Other long term (current) drug therapy
CPT/HCPCS: 92960; 93005; 93010; 99152; J2250; J3010; J7030

== ENCOUNTER 2020-02-12 14:46 | Day surgery (SDC) | payer OTHER ==
[~2020-02-12 14:46] MED LIST changes: +PANT20 PO
== END 2020-02-12 22:01 | disposition home or self-care (01) ==
LOC: WOUND 14:46
DX: L97.812 Non-pressure chronic ulcer of other part of right lower leg with fat layer exposed (principal); L97.822 Non-pressure chronic ulcer of other part of left lower leg with fat layer exposed; L03.116 Cellulitis of left lower limb; L03.115 Cellulitis of right lower limb; I87.2 Venous insufficiency (chronic) (peripheral); I50.9 Heart failure, unspecified; Z79.899 Other long term (current) drug therapy

== ENCOUNTER 2020-02-19 00:38 | Day surgery (SDC) | payer OTHER | END 2020-02-19 22:37 | disposition home or self-care (01) | LOC: WOUND 00:38 | DX: L97.812 Non-pressure chronic ulcer of other part of right lower leg with fat layer exposed (principal); L97.822 Non-pressure chronic ulcer of other part of left lower leg with fat layer exposed; L03.116 Cellulitis of left lower limb; L03.115 Cellulitis of right lower limb; I87.2 Venous insufficiency (chronic) (peripheral); I50.9 Heart failure, unspecified; Z79.899 Other long term (current) drug therapy ==

== ENCOUNTER 2020-02-28 00:41 | Day surgery (SDC) | payer OTHER | END 2020-02-28 22:44 | disposition home or self-care (01) | LOC: WOUND 00:41 | DX: L97.812 Non-pressure chronic ulcer of other part of right lower leg with fat layer exposed (principal); L97.822 Non-pressure chronic ulcer of other part of left lower leg with fat layer exposed; L03.116 Cellulitis of left lower limb; I87.2 Venous insufficiency (chronic) (peripheral); I50.9 Heart failure, unspecified; Z79.899 Other long term (current) drug therapy; Z79.01 Long term (current) use of anticoagulants ==

== ENCOUNTER 2020-03-07 00:14 | Day surgery (SDC) | payer OTHER | END 2020-03-07 23:14 | disposition home or self-care (01) | LOC: WOUND 00:14 | DX: L97.822 Non-pressure chronic ulcer of other part of left lower leg with fat layer exposed (principal); I87.2 Venous insufficiency (chronic) (peripheral); L97.821 Non-pressure chronic ulcer of other part of left lower leg limited to breakdown of skin; I50.9 Heart failure, unspecified; Z79.899 Other long term (current) drug therapy ==

== ENCOUNTER 2020-03-21 00:22 | Day surgery (SDC) | payer OTHER | END 2020-03-21 23:09 | disposition home or self-care (01) | LOC: WOUND 00:22 | DX: I96 Gangrene, not elsewhere classified (principal); L97.822 Non-pressure chronic ulcer of other part of left lower leg with fat layer exposed; L03.116 Cellulitis of left lower limb; L02.416 Cutaneous abscess of left lower limb; I50.9 Heart failure, unspecified; I87.2 Venous insufficiency (chronic) (peripheral); H26.9 Unspecified cataract; M19.90 Unspecified osteoarthritis, unspecified site; Z88.5 Allergy status to narcotic agent; Z79.01 Long term (current) use of anticoagulants; Z79.899 Other long term (current) drug therapy; Z51.5 Encounter for palliative care ==

== ENCOUNTER 2020-03-27 01:05 | Day surgery (SDC) | payer OTHER | END 2020-03-27 22:41 | disposition home or self-care (01) | LOC: WOUND 01:05 | DX: I96 Gangrene, not elsewhere classified (principal); L97.822 Non-pressure chronic ulcer of other part of left lower leg with fat layer exposed; L02.416 Cutaneous abscess of left lower limb; I87.2 Venous insufficiency (chronic) (peripheral); I50.9 Heart failure, unspecified; H26.9 Unspecified cataract; M19.90 Unspecified osteoarthritis, unspecified site; Z88.5 Allergy status to narcotic agent; Z79.01 Long term (current) use of anticoagulants; Z79.899 Other long term (current) drug therapy; Z51.5 Encounter for palliative care ==

== ENCOUNTER 2020-04-11 00:24 | Day surgery (SDC) | payer OTHER | END 2020-04-11 23:24 | disposition home or self-care (01) | LOC: WOUND 00:24 | DX: I96 Gangrene, not elsewhere classified (principal); L97.822 Non-pressure chronic ulcer of other part of left lower leg with fat layer exposed; L02.416 Cutaneous abscess of left lower limb; I87.2 Venous insufficiency (chronic) (peripheral); H26.9 Unspecified cataract; M19.90 Unspecified osteoarthritis, unspecified site; I48.91 Unspecified atrial fibrillation; Z88.5 Allergy status to narcotic agent; Z79.01 Long term (current) use of anticoagulants; Z79.899 Other long term (current) drug therapy | CPT/HCPCS: G0463 ==

== ENCOUNTER 2020-04-19 01:06 | Day surgery (SDC) | payer OTHER | END 2020-04-19 23:12 | disposition home or self-care (01) | LOC: WOUND 01:06 | DX: L97.822 Non-pressure chronic ulcer of other part of left lower leg with fat layer exposed (principal); I87.2 Venous insufficiency (chronic) (peripheral); L97.821 Non-pressure chronic ulcer of other part of left lower leg limited to breakdown of skin; I50.9 Heart failure, unspecified; Z79.899 Other long term (current) drug therapy | CPT/HCPCS: G0463 ==